=== PATIENT | male | born 1955 | race Caucasian/White ===

== ENCOUNTER → 2016-02-27 | Outpatient (CLI) | payer MEDICARE ==
--- NOTE | 2016-02-27 23:17 | MR ---
EXAMINATION TYPE: MR lumbar spine wo/w con DATE OF EXAM: 02/27/2016 10:04 PM COMPARISON: July 16, 2010 HISTORY: LBP, jose leg pain/weakness; hx back surgery x 2 for cyst removal TECHNIQUE: Multiplanar, multisequence images of the lumbar spine were acquired utilizing 20 mL intravenous Multi Alia gadolinium contrast. Diffusion weighted imaging was performed. Lumbar vertebra are fairly normal alignment. There is anterior wedging of L1 vertebral body with a sl ight thoracolumbar kyphotic curvature. The wedging is 20%. I see no bony spinal stenosis. There is de generative disc space narrowing throughout the lumbar spine and less severe at L2-3 and L5-S1. I see no bone edema to suggest an acute fracture. There is some metal artifact at the L5-S1 level on the le ft side consistent with previous surgery. There is left-sided laminectomy at L4. There is no paraspin al mass. There is hypertrophic facet arthropathy throughout the lumbar spine. There is bilateral mult ilevel neural foraminal narrowing due to the disc space narrowing and facet arthropathy. The contrast images show no pathologic enhancement. There are postsurgical changes and laminectomy de fect at T12-L1 level. There are small posterior disc bulges at L3-4 and L5-S1 without impingement on the spinal canal. IMPRESSION: Mild stable compression fracture of L1. Previous surgery in the lower lumbar spine and also at the th oracolumbar junction. No spinal stenosis. Multilevel mild neural foraminal impingement that is worse at L4-5 and L3-4 due to facet arthropathy and disc space narrowing. No acute bony abnormality seen.
== END | disposition home or self-care (01) ==
LOC: RADMRIMAIN 21:04
PROVIDERS: ATTEND Psychiatry & Neurology Neurology
DX: M48.56XA Collapsed vertebra, not elsewhere classified, lumbar region, initial encounter for fracture (principal); M48.06 Spinal stenosis, lumbar region; M46.86 Other specified inflammatory spondylopathies, lumbar region; Z98.890 Other specified postprocedural states
CPT/HCPCS: 72158; A9577

== ENCOUNTER → 2016-04-09 | Outpatient (CLI) | payer MEDICARE ==
[2016-04-09 18:02] LABS: Appearance,Urine Clear (Clear); Bilirubin,Urine Negative (Negative); Glucose,Urine (UA) Negative (Negative); Ketones,Urine Negative (Negative); Leukocyte Esterase,Urine Negative (Negative); Nitrite,Urine Negative (Negative); PH, Urine 5.5 (5.0-8.0); Protein,Urine Negative (Negative); Specific Gravity,Urine 1.016 (1.001-1.035); UA Billing (MACRO vs. MICRO) CHEM; Urobilinogen,Urine <2.0 mg/dL (<2.0)
== END | disposition home or self-care (01) ==
LOC: LABPAT 14:43
PROVIDERS: ATTEND Orthopaedic Surgery Sports Medicine
DX: Z01.812 Encounter for preprocedural laboratory examination (principal)
CPT/HCPCS: 81003; 85730; 87070

== ENCOUNTER → 2016-04-09 | Outpatient (CLI) | payer MEDICARE ==
[2016-04-09 12:48] LABS: Basophils # (A) 0.1 k/uL (0-0.2); Basophils % (A) 1 %; CH 31.3; CHCM 34.6; Eosinophils # (A) 0.1 k/uL (0-0.7); Eosinophils % (A) 2 %; HCT 47.3 % (39.0-53.0); HDW 3.02; HGB 15.6 gm/dL (13.0-17.5); Luc % (Auto) 2; Lymphocytes # (A) 1.8 k/uL (1.0-4.8); Lymphocytes % (A) 34 %; MCH 29.9 pg (25.0-35.0); MCHC 32.9 g/dL (31.0-37.0); MCV 90.7 fL (80.0-100.0); Mean Platelet Volume 7.3; Monocytes # (A) 0.4 k/uL (0-1.0); Monocytes % (A) 7 %; Neutrophils # (A) 2.9 k/uL (1.3-7.7); Neutrophils % (A) 54 %; RBC 5.21 m/uL (4.30-5.90); RDW 13.6 % (11.5-15.5); WBC 5.4 k/uL (3.8-10.6); WBC (Perox) 5.68
[2016-04-09 12:52] LABS: INR 1.1 (<1.1); Prothrombin Time 11.2 sec (9.0-12.0)
[2016-04-09 13:14] LABS: ALT 36 U/L (21-72); AST 27 U/L (17-59); Alkaline Phosphatase 69 U/L (38-126); Anion Gap 11 mmol/L; Blood Urea Nitrogen 17 mg/dL (9-20); Carbon Dioxide 24 mmol/L (22-30); Chloride 106 mmol/L (98-107); Cholesterol 155 mg/dL (<200); Glucose 80 mg/dL (74-99); HDL Cholesterol 51 mg/dL (40-60); Non-African American GFR(MDRD) >60 (>60 ml/min/1.73 sqM); Sodium 141 mmol/L (137-145); Total Protein 7.3 g/dL (6.3-8.2); Triglycerides 86 mg/dL (<150)
[2016-04-09 20:23] LABS: Hemoglobin A1C 4.7 % (4.2-6.1)
== END | disposition home or self-care (01) ==
LOC: LABWHC1 12:01
PROVIDERS: ATTEND Internal Medicine
DX: E78.5 Hyperlipidemia, unspecified (principal); I10 Essential (primary) hypertension
CPT/HCPCS: 36415; 80053; 80061; 81003; 83036; 84439; 84443; 85025; 85610; 85730; 87070; 99214

== ENCOUNTER 2016-04-22 10:46 | Inpatient (IN) | payer MEDICARE ==
[2016-04-16 08:27] VITALS: BMI 28.7
[~2016-04-22 10:46] MED LIST: ACETAMINOPHEN TAB 500 MG TAB PO ONE; DEXAMETHASONE SOD PHOSPHATE 10 MG/ML 1 ML VIAL IV ONE; LIDOCAINE 1% 20 ML VIAL (10MG/ML) FOR IV START INTRADERMA PRN; MELOXICAM 7.5 MG TAB PO ONE; MIDAZOLAM 2 MG/2 ML VIAL IV PRN; ONDANSETRON 4 MG/2 ML VIAL IVP ONE; Pre Op ABX Message 1 EACH MISC MISCELLANE ONE; ROPIVACAINE 246.25 MG, EPINEPHrine 0.5 MG, KETOROLAC 30 MG, cloNIDine HCL/PF 80 MCG, WA... MISCELLANE ONE; SCOPOLAMINE 1.5MG/72HR PATCH TRANSDERM ONE; TRANEXAMIC ACID 1,000 MG in SODIUM CHLORIDE 0.9% 100 ML IVPB ONE; ceFAZolin 2 GM in SODIUM CHLORIDE 0.9% 100 ML IVPB ONE
[2016-04-22] MEDS: LACTATED RINGERS 1,000 ML IV SCH ×3 (11:44→20:31)
[2016-04-22] MEDS ORDERED: LIDOCAINE 1% 20 ML VIAL (10MG/ML) FOR IV START INTRADERMA ONE (11:44)
[2016-04-22] MEDS ORDERED: MIDAZOLAM 2 MG/2 ML VIAL ONE (12:23)
[2016-04-22] MEDS ORDERED: fentaNYL (PF) 50 MCG/ML 2 ML AMP ONE (12:23)
[2016-04-22] MEDS ORDERED: PROPOFOL 10 MG/ML 20 ML VIAL IV ONE (12:23)
[2016-04-22] MEDS ORDERED: ROCURONIUM BROMIDE 10 MG/ML 10 ML VIAL IV ONE (12:23)
[2016-04-22] MEDS ORDERED: NEOSTIGMINE 1 MG/ML 10 ML VIAL ONE (12:23)
[2016-04-22] MEDS ORDERED: HYDROmorphone (PF) 1 MG/ML ONE (12:23)
[2016-04-22] MEDS ORDERED: SUCCINYLCHOLINE CHLORIDE 100 MG/5 ML SYR IV ONE (12:23)
[2016-04-22] MEDS ORDERED: GLYCOPYRROLATE 0.2 MG/ML 2 ML VIAL ONE (12:23)
[2016-04-22] MEDS ORDERED: TRANEXAMIC ACID 1,000 MG/10 ML VIAL ONE (12:23)
[2016-04-22] MEDS ORDERED: LIDOCAINE 1% INJ 10MG/ML (20 ML MDV) ONE (12:23)
[2016-04-22] MEDS ORDERED: SODIUM CHLORIDE 0.9% 100 ML BAG ONE (12:23)
[2016-04-22] MEDS ORDERED: ceFAZolin 3,000 MG in SODIUM CHLORIDE 0.9% IRRIGATIO 3,000 ML IRRIGATION ONE ×2 (13:03→14:35)
[2016-04-22] MEDS ORDERED: LACTATED RINGERS 1,000 ML IV ONE (14:00)
[2016-04-22] MEDS ORDERED: ONDANSETRON 4 MG/2 ML VIAL IVP PRN (15:17)
[2016-04-22] MEDS ORDERED: NA PHOS,M-B/NA PHOS,DI-BA 133 ML ENEMA RECTAL PRN (15:17)
[2016-04-22] MEDS ORDERED: MAGNESIUM HYDROXIDE 2,400 MG/10 ML CUP PO PRN (15:17)
[2016-04-22] MEDS ORDERED: traMADol 50 MG TAB PO PRN (15:17)
[2016-04-22] MEDS ORDERED: HYDROcodone/APAP 7.5-325MG 1 EACH TAB PO PRN (15:17)
[2016-04-22] MEDS ORDERED: BISACODYL 10 MG SUPP RECTAL PRN (15:17)
[2016-04-22] MEDS ORDERED: ACETAMINOPHEN TAB 325 MG TAB PO PRN (15:17)
[2016-04-22] MEDS ORDERED: HYDROmorphone 1 MG/ML 1 ML SYRINGE IVP PRN ×2 (15:17)
[2016-04-22] MEDS ORDERED: DIAZEPAM 5 MG TAB PO PRN (15:17)
[2016-04-22] MEDS ORDERED: hydrOXYzine PAMOATE 25 MG CAP PO PRN (15:17)
[2016-04-22] MEDS ORDERED: NALOXONE 0.4 MG/ML 1 ML VIAL IV PRN (15:17)
[2016-04-22] MEDS: HYDROmorphone 1 MG/ML 1 ML SYRINGE IVP PRN ×3 (15:37→17:30)
--- NOTE | 2016-04-22 15:41 | XR ---
EXAMINATION TYPE: XR knee limited RT DATE OF EXAM: 04/22/2016 3:36 PM CLINICAL HISTORY: Right knee pain and arthritis status post total knee replacement. TECHNIQUE: Portable AP and crosstable lateral views of the right knee are obtained immediately posto peratively. COMPARISON: None FINDINGS: Metallic hardware from total right knee arthroplasty is seen and appears satisfactory in a lignment and position. There is evidence of recent surgery with diffuse subcutaneous gas and soft ti ssue swelling noted. IMPRESSION: METALLIC HARDWARE FROM TOTAL RIGHT KNEE ARTHROPLASTY IS SATISFACTORY IN ALIGNMENT.
[2016-04-22] MEDS ORDERED: DICYCLOMINE 10 MG CAP PO PRN (19:07)
[2016-04-22] MEDS: ASPIRIN 325 MG TAB PO SCH (20:32)
[2016-04-22] MEDS: ceFAZolin 2 GM in SODIUM CHLORIDE 0.9% 100 ML IVPB SCH (20:32)
[2016-04-22] MEDS ORDERED: TEMAZEPAM 15 MG CAP PO PRN (21:00)
[2016-04-22] MEDS ORDERED: SENNOSIDES-DOCUSATE SODIUM 1 EACH TAB PO SCH (21:00)
[2016-04-22] MEDS ORDERED: BACLOFEN 10 MG TAB PO SCH (21:00)
[2016-04-22] MEDS ORDERED: ATORVASTATIN 10 MG TAB PO SCH (21:00)
[2016-04-23 02:59] VITALS: RESP 16
[2016-04-23] MEDS: ceFAZolin 2 GM in SODIUM CHLORIDE 0.9% 100 ML IVPB SCH (04:53)
[2016-04-23] MEDS: HYDROcodone/APAP 7.5-325MG 1 EACH TAB PO PRN ×2 (05:11→13:08)
[2016-04-23] MEDS: LACTATED RINGERS 1,000 ML IV SCH (05:59)
--- NOTE | 2016-04-23 07:06 | OP ---
DATE OF SERVICE: 04/22/2016 SURGEON: JANE ANDRADE MD VENDING MACHINE MECHANIC: Jaswant Sánchez PA-C. PREOPERATIVE DIAGNOSIS: Right knee osteoarthrosis. POSTOPERATIVE DIAGNOSIS: Right knee osteoarthrosis. OPERATION: Right total knee arthroplasty. ANESTHESIA: General endotracheal. ESTIMATED BLOOD LOSS: 200 mL. TOURNIQUET TIME: 91 minutes at 250 mmHg. SPECIMENS REMOVED: COMPLICATIONS: None apparent. DRAINS: None. DISPOSITION: Postanesthesia care unit. OPERATIVE FINDINGS: INDICATIONS: Jeremy is a 60-year-old male with long-standing history of right knee pain. History and physical examination are consistent with advanced right knee osteoarthrosis. He been through a very significant course of nonoperative management up to this point. Further treatment options were discussed and he has decided to go forward with a right total knee arthroplasty. The risks of the procedure were discussed with him in detail. These risks include, but are not limited to risk of infection, nerve damage, bleeding, pain, and a small risk of deep vein thrombosis, which could lead to fatal pulmonary embolism. There is also a risk of loosening of the implant, which could require revision operation. The patient understands these risks. All of his questions were answered to his satisfaction and appropriate informed consent was obtained. DESCRIPTION OF THE PROCEDURE: Patient was identified in the preoperative holding area. Surgical site was marked by both the patient and myself. He was given 2 grams of Ancef IV for prophylactic purposes. He was then transferred to the operative suite where he was placed supine on the operating room table. The patient then received general anesthesia per the anesthesia department without apparent complication. Examination under anesthesia was then performed. The patient was 5 degrees shy of full extension. He had 90 degrees of flexion, and the medial collateral ligament, lateral collateral ligament and posterior cruciate ligaments were stable. Tourniquet was then placed high on the right upper thigh, well padded in preparation for surgery. The patient's right lower extremity was then prepped and draped in the usual sterile fashion. Standard surgical pause was then undertaken to ensure that we were operating on the correct site and that appropriate preoperative antibiotics had been given. All staff in the room were in agreement and we proceeded. The outlines of the patella were then marked with a surgical pen. A planned 12 cm vertical incision centered over the patella was marked with a surgical pen. The leg was then exsanguinated with an Esmarch dressing. The knee was then flexed and the tourniquet was inflated to 250 mmHg. The total tourniquet time for the procedure was 91 minutes. Incision was then made with a 10 blade scalpel. Dissection was carried down sharply to the overlying fascia. Great care was taken to minimize the skin flaps. The knee was then exposed using a standard medial parapatellar approach. Small cuff of quadriceps tendon was left for suturing. He was in a bit of valgus preoperatively. A very minimal medial release was then made. Superficial medial collateral ligament was dissected off the bone around to the posterior aspect of the proximal tibia. The medial meniscus was then excised as well. The lateral meniscus was also released anteriorly. He had very osteophytes throughout the knee. These were extremely large osteophytes. He had an extremely large osteophyte on the superior pole of the patella as well as as soon as we made with arthrotomy a very large loose body was removed from the knee as well. This loose body was approximately 1-1/2 to 2 cm in diameter. After removing as much osteophyte as possible, the leg was then externally rotated. The patella was everted and the knee was flexed. Retractors were then placed to protect the collateral ligaments. I then proceeded to remove the infrapatellar fat pad. This was excised sharply tangentially with the fibers of the patellar tendon. I then proceeded to remove more peripheral osteophytes. This was done with a rongeur. I then proceeded with the distal femoral resection. He had about a 5-degree flexion contracture. I planned for an extra 2 mm resection, which was an 11 mm resection. The femoral canal was then entered in the midline of the femur approximately 10 mm anterior to the origin of the posterior cruciate ligament. The tierra was then advanced down the center of the femur and placed intramedullary. Based on preoperative radiographs, the angle between the anatomic and mechanical axis of the femur was approximately 4 to 5 degrees. The valgus angle of distal femoral cutting guide was then set at 4 degrees for the right knee. The distal femoral cutting guide was then advanced over the intramedullary tierra. This was seated firmly against the femur. I then, as mentioned, planned to take 11 mm off the distal femur. The cutting block was then secured onto the femur with pins. The jig was then removed and the distal femoral cut was made through the slot of the block. The pins were then removed and the distal femoral cutting block was removed. The accuracy of the distal femoral cuts was checked with 2 flat bars. I then proceeded with femoral sizing. The posterior referencing sizing guide was held firmly against the resected distal surface of the femur. The posterior condyles were resting on the posterior plane of the guide. The sizing stylus was then placed onto the anterior femur. The size was measured as a size 10. I then assessed for femoral rotation. The plan was for 3 degrees of external rotation. 3 degrees of external rotation was placed onto the jig. These holes were then marked. I then confirmed the rotation by 3 separate methods. This was done using epicondylar axis as well as Whitesides line and posterior referencing. It was then deemed that the external rotation was proper. I then went forward with placing the femoral cutting block. This was placed over the previously placed pinholes. The jarod wing was then placed onto the anterior slots to ensure that we would not notch the anterior femur with the anterior femoral cut. I then proceeded with the anterior femoral cut. This was flushed with the anterior cortex of the femur. The posterior cuts were then made followed by the anterior chamfer cut and then the posterior chamfer cut. The cutting block was then removed. Throughout the resection, the collateral ligaments were protected with retractors. I then placed a trial 10 femur. It fit very nice medial to lateral and fit flush with the distal end of the femur. The drill holes were then made. I then proceeded with the tibial cutter. I planned for cruciate-retaining knee. The guide was placed and set for varus valgus and for slope. The height was set for an approximately 2 mm resection from the lateral tibial plateau, which was the lower side. I was happy with the alignment and the amount of resection. The cutting block was then pinned to the proximal tibia. The alignment tierra was then removed and the proximal tibia was resected with reciprocating saw. Again this was done with retractors, protecting the collateral ligaments as well as posterior cruciate ligament. I then proceeded to evaluate the flexion and extension gaps. A 10 mm block was placed. The flexion and extension gaps were equal. I then proceeded with resection of the posterior osteophytes. He had extremely extensive posterior osteophytes. This was done using curved osteotome. This resected the posterior osteophytes and posterior capsule stripping was also done off the posterior aspect of the femur at this time. The osteophytes were removed. I then proceeded with resection of the patella. The thickness of the patella was measured using caliper. The thickness was 25 mm. The thickness of the anticipated patellar dome was taken into account. Resection was then performed and confirmed to be equal in 4 quadrants using a caliper. Approximately 14 mm of bone remained after the resection. A 35 x 9.0 mm standard patellar trial was then placed. The holes were then drilled and trial was then placed. I then proceeded with sizing the tibial plate. A size G tibial plate fit very nicely. I then placed a trial femur, the tibial tray and the patellar button. A 10 mm trial tibial insert was also placed. The components fit very nicely. He had full extension and flexion. The flexion-extension gaps were equal and stable both varus and valgus stress. The patella tracked appropriately. Tibial tray rotation was then marked with a Bovie. This was externally rotated properly. I then proceeded with tibial preparation. I first drilled the femoral holes and removed femoral component. The trial tray was then set for proper external rotation as well as mediolateral placement onto the tibia. It was then pinned into place. I then proceeded with punching the keel. I then decided to proceed with cementing of all of our components. The knee was thoroughly irrigated with sterile saline solution via pulse lavage. The lateral geniculate artery was identified and cauterized. All blood was removed from the bone of the tibia, femur and patella with pulse lavage. I then proceeded with cementing. Two packs of antibiotic bone cement were prepared on the back table by the neurosurgical physician assistant. I then proceeded with cementing of the tibia first. The cement was impacted in the keel as well as deeply seated into the bone. A second coat of cement was then placed. Tibia was then impacted into place. Excess cement was removed with Cushings and jokers. I then proceeded with cementing of the femoral component. The femoral component was also cemented using standard technique. Excess cement was removed. A 10 mm trial insert was then placed into the knee. It was brought into full extension with a constant axial load placed until the cement had hardened. The patellar component was then cemented. This was held firmly with a compressive device until the cement had dried. When the cement had dried, the knee was taken out of extension. All excess cement was removed from around the prosthesis. I then trialed the knee with a 10 mm insert. Flexion-extension gaps were appropriate. The knee was stable. It came into full extension. I decided to go forward with a 10 mm cross-linked cruciate-retaining tibial insert. Polyethylene was then placed onto the tibial tray and locked into place. The knee was then reduced. The knee was again further irrigated with sterile saline solution with antibiotic added. Tourniquet was then deflated. The total tourniquet time was 91 minutes at 250 mmHg. Final components were Jacquie Persona size 10 cruciate-retaining femoral component, a size G tibial tray, a 10 mm medial congruent cruciate retaining polyethylene insert and a 35 x 9 mm standard patella. I then proceeded with closure. Again, the knee was thoroughly irrigated. The quadriceps tendon and the medial retinaculum were reapproximated with #2 Ethibond suture. The extensor mechanism was then closed with running #2 Quill suture. Subcutaneous tissues were closed with 2-0 Vicryl interrupted suture. Skin was closed with a running 3-0 Quill suture. Dermabond was applied to the incision. Sterile compressive dressings were then applied. All sponge and needle counts were deemed correct prior to closure. The patient tolerated the procedure without apparent complication. He was transferred to recovery room in stable condition.
[2016-04-23 07:41] VITALS: BP 109/54; PULSE 72; TEMP 98.4
[2016-04-23 07:58] LABS: Basophils % (A) 0 %; CH 31.2; CHCM 34.6; Eosinophils % (A) 0 %; HDW 2.99; Luc # (Auto) 0.13; Luc % (Auto) 1; Lymphocytes # (A) 1.4 k/uL (1.0-4.8); Lymphocytes % (A) 14 %; MCH 30.6 pg (25.0-35.0); MCHC 33.8 g/dL (31.0-37.0); MCV 90.7 fL (80.0-100.0); Mean Platelet Volume 8.2; Monocytes # (A) 0.8 k/uL (0-1.0); Monocytes % (A) 8 %; Neutrophils # (A) 7.8 k/uL (1.3-7.7); Neutrophils % (A) 77 %; RBC 3.97 m/uL (4.30-5.90); RDW 13.9 % (11.5-15.5); WBC 10.2 k/uL (3.8-10.6); WBC (Perox) 11.14
[2016-04-23 08:09] LABS: HGB 12.1 gm/dL (13.0-17.5)
[2016-04-23] MEDS: ASPIRIN 325 MG TAB PO SCH (08:10)
[2016-04-23] MEDS: HYDROmorphone 1 MG/ML 1 ML SYRINGE IVP PRN (08:16)
[2016-04-23] MEDS ORDERED: CRANBERRY PO SCH (09:00)
[2016-04-23] MEDS ORDERED: VITAMIN C PO SCH (09:00)
[2016-04-23] MEDS ORDERED: NON-FORMULARY DRUG (Omega-3/Dha/Epa/Fish Oil [Fish Oil Ec 1,200 Mg Softgel] 1 CAP) PO SCH (09:00)
[2016-04-23] MEDS ORDERED: LOSARTAN 25 MG TAB PO SCH (09:00)
[2016-04-23] MEDS ORDERED: ASCORBIC ACID 500 MG TAB PO SCH (09:00)
[2016-04-23] MEDS ORDERED: ZINC SULFATE 220 MG CAP PO SCH (09:00)
[2016-04-23] MEDS ORDERED: VIT A,C & E-LUTEIN-MINERALS 1 EACH TAB PO SCH (09:00)
--- NOTE | 2016-04-23 10:38 | P.CNPUL ---
History of Present Illness Consult date: 04/23/16 Reason for consult: other Chief complaint: Status post right total knee arthroplasty History of present illness: 60-year-old white male with a right total knee arthroplasty done by Dr. Sam. Today's postop day #1. The nurse call me yesterday. We ordered his home medications. Most of them are supplemental vitamins. He is doing well. No major complaints. He has no major ALLERGIES. He sees Dr. Jiang as his primary. His home medications include tramadol zinc vitamin A simvastatin omega-3 his losartan ibuprofen dicyclomine her Bentyl cranberry with vitamin C baclofen aspirin ascorbic acid. His medical problem list includes primarily hypertension hyperlipidemia and chronic pain syndrome with arthritis. Review of Systems A 12 point review of system is positive only for pain in the right knee area. Otherwise review of system is unremarkable. 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 has beginnings of cataracts and glaucoma History of Any Multi-Drug Resistant Organisms: None Reported Past Surgical History: Back Surgery, Hernia Repair, Joint Replacement, Orthopedic Surgery Additional Past Surgical History / Comment(s): colonoscopy, rt rotator cuff repair, orif lt wrist, Lt TKA, rt knee scope, multiple back surgeries Past Anesthesia/Blood Transfusion Reactions: No Reported Reaction Past Psychological History: No Psychological Hx Reported Smoking Status: Never smoker Past Alcohol Use History: None Reported Past Drug Use History: None Reported - Past Family History Father Additional Family Medical History / Comment(s): black lung disease Mother Family Medical History: Pneumonia Medications and Allergies Home Medications Medication Instructions Recorded Confirmed Type Ascorbic Acid [Vitamin C] 1,000 mg PO DAILY 04/16/16 04/22/16 History Aspirin [Adult Low Dose Aspirin EC] 81 mg PO DAILY 04/16/16 04/22/16 History Baclofen [Lioresal] 20 mg PO HS 04/16/16 04/22/16 History Cranberry + Vitamin C 1 each PO DAILY 04/16/16 04/22/16 History Dicyclomine [Bentyl] 10 mg PO BID PRN 04/16/16 04/22/16 History Ibuprofen [Motrin] 800 mg PO Q8HR PRN 04/16/16 04/22/16 History Losartan [Cozaar] 25 mg PO DAILY 04/16/16 04/22/16 History [place]-3/Dha/Epa/Fish Oil [Fish Oil 1 cap PO DAILY 04/16/16 04/22/16 History EC 1,200 mg Softgel] Simvastatin [Simvastatin] 20 mg PO HS 04/16/16 04/22/16 History Vit A/Vit C/Vit E/Zinc/Copper 1 cap PO DAILY 04/16/16 04/22/16 History [ICAPS SOFTGEL] Zinc Gluconate [Zinc] 100 mg PO DAILY 04/16/16 04/22/16 History traMADol HCL [Ultram] 50 mg PO Q6HR PRN 04/16/16 04/22/16 History Allergies Allergy/AdvReac Type Severity Reaction Status Date / Time No Known Allergies Allergy Verified 04/22/16 15:48 Physical Exam Osteopathic Statement: *. No significant issues noted on an osteopathic structural exam other than those noted in the History and Physical/Consult. Vitals: Vital Signs Temp Pulse Pulse Pulse Resp BP BP 04/23/16 07:30 98.4 F 72 16 109/54 04/23/16 01:40 97.9 F 74 16 82/42 04/22/16 20:00 97.9 F 92 18 117/70 04/22/16 18:15 93 117/67 04/22/16 18:00 63 117/64 04/22/16 17:45 74 127/69 04/22/16 17:30 92 129/78 04/22/16 17:15 97 110/75 04/22/16 17:00 94 129/76 04/22/16 16:45 114 H 140/88 04/22/16 16:30 91 125/74 04/22/16 16:15 97.8 F 93 16 135/74 04/22/16 16:01 83 16 135/66 04/22/16 16:00 83 16 04/22/16 15:46 67 16 131/68 04/22/16 15:30 76 16 133/70 04/22/16 15:16 98.1 F 87 16 135/68 04/22/16 11:32 97.9 F 60 18 179/97 Pulse Ox 04/23/16 07:30 98 04/23/16 01:40 95 04/22/16 20:00 94 L 04/22/16 18:15 04/22/16 18:00 04/22/16 17:45 04/22/16 17:30 04/22/16 17:15 04/22/16 17:00 04/22/16 16:45 04/22/16 16:30 04/22/16 16:15 98 04/22/16 16:01 97 04/22/16 16:00 04/22/16 15:46 94 L 04/22/16 15:30 98 04/22/16 15:16 98 04/22/16 11:32 98 Intake and Output 04/22/16 04/23/16 04/23/16 22:59 06:59 14:59 Intake Total 875 240 Output Total 1000 750 Balance -1000 125 240 Intake: IV 875 Lactated Ringers 1,000 ml 675 @ 75 mls/hr IV .[id number] MANUEL Rx#:[id number] ceFAZolin 2 gm In Sodium 200 Chloride 0.9% 100 ml @ 100 mls/hr IVPB ONCE ONE Rx#:[id number] Oral 240 Output: Urine 1000 750 Other: Voiding Method Self-Catheterization Weight 90.718 kg No acute distress, oriented 3. HEENT examination is grossly unremarkable. Supple. Full range of motion. Cardiovascular examination reveals regular rhythm rate. S1-S2 normal. Lungs reveal clear breath sounds. Breath sounds are equal. No adventitious lung sounds. Abdomen soft bowel sounds are heard. Next Extremities are intact. Results - Laboratory Findings CBC and BMP: 04/23/16 07:07 Abnormal lab findings: Abnormal Labs 04/23/16 07:07 RBC 3.97 L Hgb 12.1 L D Hct 36.0 L Neutrophils # 7.8 H Assessment and Plan (1) Osteoarthritis of right knee Status: Acute Plan: Plan Home medications were reordered. The patient is doing well. Not sure if she' ll be discharged to one or [address] Sam we'll make that decision. Additional recommendations suggestions forthcoming. Prognosis is generally good. Time with Patient: Greater than 30
--- NOTE | 2016-04-23 11:55 | P.DS ---
Providers Date of admission: 04/22/16 10:46 Expected date of discharge: 04/23/16 Attending physician: Mathieu Sam Consults: 04/22/16 15:17 Consult Physician Routine Consulting Provider: Ora Jiang Reason/Comments: post op medical management Do you want consulting provider notified?: Yes Primary care physician: Ora Deidre [facility] Course: Patient was admitted to the OR on 05/02/2016 TO undergo right total knee arthroplasty per Dr. Sam. He had failed conservative measures as an outpatient and elected to proceed with surgery after given informed consent. He underwent the above procedure which he tolerated well without complication. On day of discharge he desires discharge to home. 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 Review of systems is negative for calf pain, acute numbness or tingling, fever, chills, chest pain, shortness of breath, nausea, vomiting, dizziness, headaches, rashes, bleeding, slurred speech or other. Procedures: Right total knee arthroplasty Patient Condition at Discharge: Good Plan - Discharge Summary New Discharge Prescriptions: Aspirin 325 mg PO BID #60 tab Docusate [Colace] 100 mg PO BID #60 capsule HYDROcodone/APAP 7.5-325MG [Brandon 7.5-325] 1 - 2 each PO Q6HR PRN #90 tab PRN Reason: Pain Discharge Medication List Ascorbic Acid [Vitamin C] 1,000 mg PO DAILY 04/16/16 [History] Aspirin [Adult Low Dose Aspirin EC] 81 mg PO DAILY 04/16/16 [History] Baclofen [Lioresal] 20 mg PO HS 04/16/16 [History] Cranberry + Vitamin C 1 each PO DAILY 04/16/16 [History] Dicyclomine [Bentyl] 10 mg PO BID PRN 04/16/16 [History] Ibuprofen [Motrin] 800 mg PO Q8HR PRN 04/16/16 [History] Losartan [Cozaar] 25 mg PO DAILY 04/16/16 [History] [place]-3/Dha/Epa/Fish Oil [Fish Oil EC 1,200 mg Softgel] 1 cap PO DAILY 04/16/16 [History] Simvastatin [Simvastatin] 20 mg PO HS 04/16/16 [History] Vit A/Vit C/Vit E/Zinc/Copper [ICAPS SOFTGEL] 1 cap PO DAILY 04/16/16 [History] Zinc Gluconate [Zinc] 100 mg PO DAILY 04/16/16 [History] traMADol HCL [Ultram] 50 mg PO Q6HR PRN 04/16/16 [History] Aspirin 325 mg PO BID #60 tab 04/23/16 [Rx] Docusate [Colace] 100 mg PO BID #60 capsule 04/23/16 [Rx] HYDROcodone/APAP 7.5-325MG [[place] 7.5-325] 1 - 2 each PO Q6HR PRN #90 tab [Rx] Follow up Appointment(s)/Referral(s): [facility] Nurse, [NON-STAFF] - 1 Week Mathieu Sam MD [STAFF PHYSICIAN] - 10 Days Activity/Diet/Wound Care/Special Instructions: keep Wound clean and dry Take meds as directed Follow-up with Dr. Sam in office, [phone] Weight-bear as tolerated Discharge Disposition: HOME WITH HOME HEALTH SERVICES
[2016-04-23] MEDS ORDERED: MULTIVITAMINS, THERA 1 EACH TAB PO SCH (12:00)
== END 2016-04-23 14:35 | disposition home health service (06) | DRG 470 ==
LOC: 2ORMAIN 10:46 → 3SUR 15:34
PROVIDERS: ADMIT Orthopaedic Surgery Sports Medicine; ATTEND Orthopaedic Surgery Sports Medicine
PROC: 0SRC0J9 Replacement of Right Knee Joint with Synthetic Substitute, Cemented, Open Approach (ICD-10-PCS; principal; 2016-04-22 12:30)
DX: M17.11 Unilateral primary osteoarthritis, right knee (principal); I10 Essential (primary) hypertension; E78.5 Hyperlipidemia, unspecified; G89.4 Chronic pain syndrome; H40.9 Unspecified glaucoma; M21.371 Foot drop, right foot; H26.9 Unspecified cataract; H91.90 Unspecified hearing loss, unspecified ear; Z79.82 Long term (current) use of aspirin; Z79.899 Other long term (current) drug therapy; Z96.652 Presence of left artificial knee joint
CPT/HCPCS: 85025; 88300

== ENCOUNTER 2017-05-31 07:24 | Inpatient (IN) | payer MEDICARE ==
[2017-05-23 12:26] VITALS: BMI 28.7
[~2017-05-31 07:24] MED LIST changes: +HYDROmorphone 0.5 MG/0.5 ML SYRINGE IVP PRN; -Pre Op ABX Message 1 EACH MISC MISCELLANE ONE; -TRANEXAMIC ACID 1,000 MG in SODIUM CHLORIDE 0.9% 100 ML IVPB ONE; +TRANEXAMIC ACID 1,000 MG in SODIUM CHLORIDE 0.9% 50 ML IVPB ONE; -ceFAZolin 2 GM in SODIUM CHLORIDE 0.9% 100 ML IVPB ONE; +ceFAZolin IN SWFI 2 GM/20 ML SYRINGE IVP ONE; +fentaNYL (PF) 50 MCG/ML 2 ML AMP IV PRN
[2017-05-31] MEDS ORDERED: LIDOCAINE 1% 20 ML VIAL (10MG/ML) FOR IV START INTRADERMA ONE (08:13)
[2017-05-31] MEDS: LACTATED RINGERS 1,000 ML IV SCH ×2 (08:13→21:28)
[2017-05-31] MEDS ORDERED: MIDAZOLAM 2 MG/2 ML VIAL ONE (08:45)
[2017-05-31] MEDS ORDERED: MIDAZOLAM 2 MG/2 ML VIAL IV ONE (08:45)
[2017-05-31] MEDS ORDERED: HYDROcodone/APAP 5-325MG 1 EACH TAB PO PRN (08:47)
[2017-05-31] MEDS ORDERED: NALOXONE 0.4 MG/ML 1 ML VIAL IV PRN (08:47)
[2017-05-31] MEDS ORDERED: hydrOXYzine PAMOATE 25 MG CAP PO PRN (08:47)
[2017-05-31] MEDS ORDERED: MAGNESIUM HYDROXIDE 2,400 MG/10 ML CUP PO PRN (08:47)
[2017-05-31] MEDS ORDERED: MORPHINE SULFATE 4MG/4ML SYRG IVP PRN ×4 (08:47→10:05)
[2017-05-31] MEDS ORDERED: DIAZEPAM 5 MG TAB PO PRN ×2 (08:47)
[2017-05-31] MEDS ORDERED: ONDANSETRON 4 MG/2 ML VIAL IVP PRN (08:47)
[2017-05-31] MEDS ORDERED: LIDOCAINE 1% INJ 10MG/ML (20 ML MDV) ONE (09:19)
[2017-05-31] MEDS ORDERED: ceFAZolin 3,000 MG in SODIUM CHLORIDE 0.9% IRRIGATIO 3,000 ML IRRIGATION ONE (09:19)
[2017-05-31] MEDS ORDERED: VECURONIUM 10 MG VIAL IV ONE (09:19)
[2017-05-31] MEDS ORDERED: SUCCINYLCHOLINE CHLORIDE 100 MG/5 ML SYR IV ONE (09:19)
[2017-05-31] MEDS ORDERED: PROPOFOL 10 MG/ML 20 ML VIAL IV ONE (09:19)
[2017-05-31] MEDS ORDERED: SODIUM CHLORIDE 0.9% 100 ML BAG ONE (09:19)
[2017-05-31] MEDS ORDERED: GLYCOPYRROLATE 0.2 MG/ML 2 ML VIAL ONE (09:19)
[2017-05-31] MEDS ORDERED: NEOSTIGMINE 1 MG/ML 10 ML VIAL ONE (09:19)
[2017-05-31] MEDS ORDERED: fentaNYL (PF) 50 MCG/ML 2 ML AMP ONE (09:19)
[2017-05-31] MEDS ORDERED: TRANEXAMIC ACID 1,000 MG/10 ML VIAL ONE (09:19)
[2017-05-31] MEDS ORDERED: LACTATED RINGERS 1,000 ML IV ONE (10:14)
--- NOTE | 2017-05-31 10:38 | P.OP ---
Date of Procedure: 05/31/17 Preoperative Diagnosis: Severe osteoarthritis left hip Postoperative Diagnosis: Severe osteoarthritis left hip Procedure(s) Performed: Left total hip arthroplasty with a direct anterior approach Implants: Olivas and nephew Polarstem size 4 standard Olivas & Nephew R3, 3 hole acetabular shell, 54 mm Olivas & Nephew reflection 6.5 mm cancellus screw, 20 mm 2 Olivas [employer] Nephew R3, XLPE 20 acetabular liner Olivas & Nephew Oxinium femoral head 36 m, +8 All components were press-fit. The articulation is Oxinium on polyethylene. Anesthesia: GETA Surgeon: Clovis Horner Wet Pour Mixer #1: Colette Jones Estimated Blood Loss (ml): 700 (279 mL returned with Cell Saver) Pathology: other (Femoral head) Condition: stable Disposition: PACU Indications for Procedure: After failure of conservative treatment we discussed the surgical and nonsurgical treatment options at length. Patient wishes to proceed with a total hip arthroplasty with a direct anterior approach. Complications specific to this procedure were discussed at length, including but not limited to infection, leg length discrepancy, dislocation, and nerve injury. Patient is aware of all these complications and informed consent was obtained Operative Findings: The operative findings are consistent with severe osteoarthritis of the left hip Description of Procedure: Patient was seen and evaluated in the preoperative area, consent was reviewed, and the surgical site was marked with a skin marker. Patient was then brought to the operating room and given prophylactic antibiotics intravenously. 1 g of Tranexamic acid was also given. A general anesthetic was administered by the anesthesia department. The patient was then placed on the Napoleon table with the bony prominences well-padded. The hip area was then prepped and draped in usual sterile fashion. A universal timeout was then performed, which confirmed the patient's name, surgical site, ALLERGIES, and procedure being performed. Next the incision site was located at 1 cm distal and 1 cm lateral to the anterior superior iliac spine. The skin and subcutaneous tissues were sharply incised. Incision was carefully dissected down to the fascia overlying the tensor fascia daniel muscle. This fascia was then incised in line with the incision. Next, using blunt finger dissection, the tensor fascia daniel muscle was dissected off its investing fascia. The muscle was then carefully retracted laterally with a cobra retractor over the lateral neck of the femur. Next, the circumflex vessels were identified and cauterized using the AquaMantis device. The anterior hip capsule was then exposed. The capsule was then opened and an inverted T fashion. Cobra retractors were then placed intracapsularly. The proximal femur was then visualized. The femoral neck was then osteotomized appropriate level above the lesser trochanter. Small amount of traction was placed with the Napoleon table. A small wedge of bone was then removed from the remaining femoral head. Next, using a corkscrew femoral head was easily removed from the acetabulum. On gross visual inspection, the femoral head had complete loss of articular cartilage in multiple periarticular osteophytes. Attention was then turned to the acetabulum. the acetabulum was exposed and any remaining labrum was excised. Sequential reaming of the acetabulum was performed using fluoroscopic guidance. When the appropriate size was reached, a trial was then placed. The position and fit of the trial was checked with fluoroscopy. The trial was then removed. Then, using fluoroscopic guidance, the final implant was impacted at 20 of anteversion and 40 of abduction, and fully seated in the acetabulum. 2 screws were then placed in the acetabulum. Again fluoroscopy was used to check position of the screws. Next, the liner was then impacted, with a 20 elevated liner located in the anterior superior quadrant. Component locking was confirmed. Attention was then directed to the femur. With the aid of the Napoleon table, the femur was externally rotated to approximately 130, extended, and abducted under the opposite leg. A side hook was then placed under the proximal femur, and the side hook elevator was used to elevate the proximal femur. Retractors were then placed. A capsular release was performed, as well as a release of the conjoined tendon, which afforded excellent visualization of the proximal femur. Next, a box osteotome was used to lateralize the proximal femur. A precision filer hand was then used to locate the femoral canal. Sequential broaching was then performed with appropriate size which afforded excellent fixation in the proximal femur. A trial was then placed with appropriate head and neck, and the hip was gently reduced with the aid of the Napoleon table. Fluoroscopy was then used to check position of the components, as well as to ensure equal leg lengths. The hip was then gently dislocated and the trials were then removed. Final implants were then impacted and the hip was again reduced. Final fluoroscopic x-rays confirmed that the components were in anatomic position, as well as equal leg lengths. The hip was also taken through range of motion, and found to be stable. The hip was then copiously irrigated with antibiotic solution with pulsatile lavage. The hip was then irrigated with Irrisept solution. The soft tissues were then injected with a ropivacaine solution, which consisted of 246.25 mg of ropivacaine, 0.5 mg of epinephrine, 30 mg of Toradol, 80 g of clonidine, and 48.45 mL of sterile water, for a total of 100 mL of fluid injected. A second dose of 1 g of Tranexamic acid was also given. the fascia was then closed with 2-0 strata fix suture. The subcutaneous tissue was closed with 3-0 Vicryl. The subcuticular tissue was closed with 3-0 strata fix suture. The skin was then closed with Dermabond glue and a sterile silver dressing. The patient was then transferred to the recovery room in stable condition. The logistics assistant KELIN Allison was required due to the complexity of surgery, and the need for skilled certified surgical assistant for positioning, draping, exposure, retraction, and closure of the wound.
--- NOTE | 2017-05-31 10:55 | FL ---
EXAMINATION TYPE: FL guidance operating room, XR Hip Limited LT DATE OF EXAM: 05/31/2017 CLINICAL HISTORY: Left hip replacement surgery. TECHNIQUE: Fluoroscopy. Intraoperative limited views left hip. COMPARISON: None. FINDINGS: Fluoroscopic guidance was provided during left hip replacement procedure performed by Dr. Horner. A total of 41 seconds of fluoroscopic time was utilized during the procedure and 2 spot in traoperative images are acquired. Intraoperative images acquired show metallic hardware from left hip surgery well seated in single fro ntal projection. IMPRESSION: As Above.
--- NOTE | 2017-05-31 11:24 | XR ---
EXAMINATION TYPE: XR Hip Limited LT DATE OF EXAM: 05/31/2017 CLINICAL HISTORY: Left hip pain and osteoarthritis status post surgical replacement. TECHNIQUE: Single AP portable view of left hip is obtained immediately postoperatively. COMPARISON: None. FINDINGS: Metallic hardware from total left hip arthroplasty is seen and appears satisfactory in alig nment and position. There is evidence of recent surgery with subcutaneous gas noted laterally at sub trochanteric level. IMPRESSION: Metallic hardware from left hip arthroplasty is satisfactory in position.
[2017-05-31] MEDS: MORPHINE SULFATE 4MG/4ML SYRG IVP ONE ×2 (11:27→11:42)
[2017-05-31 11:29] VITALS: RESP 16
[2017-05-31] MEDS: ASPIRIN 325 MG TAB PO SCH ×2 (13:08→21:20)
[2017-05-31] MEDS: SODIUM CHLORIDE 0.9% 1,000 ML IV SCH (13:08)
[2017-05-31] MEDS ORDERED: SODIUM CHLORIDE 0.9% 250 ML IV ONE (14:57)
[2017-05-31 15:57] LABS: Basophils % (A) 0 %; Eosinophils # (A) 0.1 k/uL (0-0.7); Eosinophils % (A) 0 %; HCT 37.2 % (39.0-53.0); HGB 12.3 gm/dL (13.0-17.5); Lymphocytes # (A) 0.6 k/uL (1.0-4.8); Lymphocytes % (A) 4 %; MCH 29.3 pg (25.0-35.0); MCHC 33.1 g/dL (31.0-37.0); MCV 88.5 fL (80.0-100.0); Mean Platelet Volume 8.1; Monocytes # (A) 0.5 k/uL (0-1.0); Monocytes % (A) 4 %; Neutrophils # (A) 13.1 k/uL (1.3-7.7); Neutrophils % (A) 92 %; Platelet Count 202 k/uL (150-450); RDW 13.9 % (11.5-15.5); WBC 14.3 k/uL (3.8-10.6)
[2017-05-31] MEDS: ceFAZolin IN SWFI 2 GM/20 ML SYRINGE IVP SCH (16:06)
[2017-05-31 16:14] LABS: Creatine Kinase 313 U/L (55-170)
[2017-05-31 16:26] LABS: Troponin I <0.012 ng/mL (0.000-0.034)
[2017-05-31 16:30] LABS: Creatine Kinase MB 3.4 ng/mL (0.0-2.4)
--- NOTE | 2017-05-31 19:01 | P.CNPUL ---
History of Present Illness Consult date: 05/31/17 Requesting physician: Clovis Horner Reason for consult: other Chief complaint: Hypotension, medical management History of present illness: Mr. Riggs is a 62-year-old white male patient Follows with Dr. Jiang for primary care services, presented on 05/31/2017 elective left total hip arthroplasty with a direct anterior approach for diagnosis of severe osteoarthritis of the left hip. Has a past medical history of CVA, hypertension , hyperlipidemia, osteoarthritis, cataracts, glaucoma. He tolerated the procedure very well, and returned to the recovery room in stable condition. He was then transferred to inpatient room, her consulted for medical management. At around 1530 this afternoon patient started experiencing hypotension, with systolic blood pressure in the 60s limited of mercury. Nursing staff place the patient in Trendelenburg position, and patient was given 1 L of IV bolus of 0.9 normal saline. Stat hemoglobin was checked, and was at 12.3, and the preop hemoglobin was 14.4. EBL was estimated to be around 700. Patient responded to IV fluid resuscitation, and his blood pressure recovered with the most recent blood pressure at 107/57. Patient is non-tachycardic, sinus mechanism. Stat EKG was obtained for patient complaining of vague chest discomfort in the midsternal area, with no radiation. EKG showed nonspecific Q-wave in the inferior leads, stat troponin was negative 1, CK-MB and total creatinine kinase were elevated at 3.4, and 313 respectively. Could be related to muscle injury related to surgery. Patient denied any dyspnea, is complaining of some tingling sensation in bilateral hands which subsided as the blood blood pressure recovered, as stated felt a little dizzy During the episode of hypotension which is currently resolved. Currently IV fluids are infusing at the rate of 65 ML per hour. Patient is reducing urine. Cardiology was consulted. During my evaluation patient is awake, alert, initially seen in the Trendelenburg position, the blood pressure recovered head of the bed was elevated. Lung sounds are clear to auscultation, he is on room air, not requiring any supplemental oxygen. Patient is afebrile, denies any fever or chills. Left hip surgical incision is covered with a postsurgical dressing, there is some swelling at the incision site, good pedal pulses noted bilaterally , no tenderness noted bilaterally. Review of Systems All systems: negative Constitutional: Denies chills, Denies fever Eyes: denies blurred vision, denies pain Ears, nose, mouth and throat: Denies headache, Denies sore throat Cardiovascular: Denies chest pain, Denies shortness of breath Respiratory: Denies cough Gastrointestinal: Denies abdominal pain, Denies diarrhea, Denies nausea, Denies vomiting Musculoskeletal: Reports arm numbness/tingling, Denies myalgias Musculoskeletal: left: hip swelling (Left hip surgical incision covered with a surgical dressing, swelling and tenderness in the surrounding area) Integumentary: Denies pruritus, Denies rash Neurological: Denies numbness, Denies weakness Psychiatric: Denies anxiety, Denies depression Endocrine: Denies fatigue, Denies weight change 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 has beginnings of cataracts and glaucoma, bulging cervical disc History of Any Multi-Drug Resistant Organisms: None Reported Past Surgical History: Back Surgery, Hernia Repair, Joint Replacement, Orthopedic Surgery Additional Past Surgical History / Comment(s): colonoscopy, rt rotator cuff repair, orif lt wrist, both knees replaced, rt knee scope, multiple back surgeries, pain injections, ant tlh 05/31/17 Past Anesthesia/Blood Transfusion Reactions: No Reported Reaction Past Psychological History: No Psychological Hx Reported Smoking Status: Never smoker Past Alcohol Use History: None Reported Past Drug Use History: None Reported - Past Family History Father Additional Family Medical History / Comment(s): black lung disease Mother Family Medical History: Pneumonia Medications and Allergies Home Medications Medication Instructions Recorded Confirmed Type Ascorbic Acid [Vitamin C] 1,000 mg PO DAILY 04/16/16 05/31/17 History Aspirin [Adult Low Dose Aspirin EC] 81 mg PO DAILY 04/16/16 05/31/17 History Baclofen [Lioresal] 20 mg PO HS PRN 04/16/16 05/31/17 History Cranberry + Vitamin C 1 cap PO DAILY 04/16/16 05/31/17 History Dicyclomine [Bentyl] 10 mg PO BID PRN 04/16/16 05/31/17 History Ibuprofen [Motrin] 800 mg PO Q8HR PRN 04/16/16 05/31/17 History Losartan [Cozaar] 25 mg PO DAILY 04/16/16 05/31/17 History Simvastatin [Simvastatin] 20 mg PO HS 04/16/16 05/31/17 History Vit A/Vit C/Vit E/Zinc/Copper 1 cap PO DAILY 04/16/16 05/31/17 History [ICAPS SOFTGEL] Zinc Gluconate [Zinc] 100 mg PO DAILY 04/16/16 05/31/17 History traMADol HCL [Ultram] 50 mg PO Q6HR PRN 04/16/16 05/31/17 History Biotin 5 mg PO DAILY 05/23/17 05/31/17 History Gabapentin [Neurontin] 300 mg PO TID 05/27/17 05/31/17 History Allergies Allergy/AdvReac Type Severity Reaction Status Date / Time No Known Allergies Allergy Verified 05/31/17 13:17 Physical Exam Vitals: Vital Signs Temp Pulse Pulse Resp BP BP Pulse Ox 05/31/17 12:00 68 16 127/74 100 05/31/17 11:45 62 16 130/77 100 05/31/17 11:30 53 L 16 131/73 100 05/31/17 11:15 53 L 16 128/71 97 05/31/17 11:02 97.6 F 62 12 146/81 96 05/31/17 07:43 98.1 F 54 L 16 165/84 95 Intake and Output 05/31/17 05/31/17 05/31/17 06:59 14:59 22:59 Intake Total 1741 Output Total 1440 Balance 301 Intake: IV 1501 Oral 240 Output: Urine 740 Straight 500 Estimated Blood Loss 700 Other: Voiding Method Self-Catheterization Self-Catheterization Weight 90.718 kg - Constitutional General appearance: average body habitus, no acute distress - EENT Eyes: EOMI, normal appearance ENT: NA/AT, normal oropharynx Ears: bilateral: normal - Neck Neck: no lymphadenopathy, normal ROM Carotids: bilateral: upstroke normal Thyroid: bilateral: normal size - Respiratory Respiratory: bilateral: CTA - Cardiovascular Rhythm: regular Heart sounds: normal: S1, S2 ankle Peripheral Edema: absent: None foot Peripheral Edema: absent: None leg Peripheral Edema: absent: None - Gastrointestinal General gastrointestinal: no organomegaly, soft, no tenderness - Neurologic Neurologic: CNII-XII intact - Musculoskeletal Musculoskeletal: gait normal - Psychiatric Psychiatric: A&O x's 3, appropriate affect, intact judgment & insight Results - Laboratory Findings CBC and BMP: 05/31/17 15:21 Abnormal lab findings: Abnormal Labs 05/31/17 15:21 WBC 14.3 H RBC 4.20 L Hgb 12.3 L Hct 37.2 L Neutrophils # 13.1 H Lymphocytes # 0.6 L - Diagnostic Findings Additional studies: Twelve-lead EKG was reviewed, left hip x-ray report was reviewed Assessment and Plan Plan: Assessment: #1. Hypotension, related to hypovolemia, patient responded IV fluid resuscitation 11 L of 0.9 normal saline bolus. #2. Blood loss anemia, as an expected postsurgical outcome, status post left hip arthroplasty, Intra-Op EBL was estimated to be at 700 ML. Postoperative hemoglobin was 12.3 #3. Positive CK-MB and creatinine kinase, EKG was negative for any acute ischemic changes, is probably related to acute muscle injury related to surgery. We'll follow up with follow-up troponins, cardiology was consulted #4. Bilateral hand paresthesias, and lightheadedness related to hypotension, resolved #5. Previous history of CVA #6. Hypertension #7. Severe osteoarthritis of the left hip, status post left total hip arthroplasty with a direct anterior approach, postop day 0 #8. Hyperlipidemia #9. History of cataracts #10. Straight of multiple orthopedic surgeries including multiple back surgeries, right rotator cuff repair, left wrist ORIF Plan: Patient was given 1 L of IV post 0.9 normal saline, with good response. We'll recheck hemoglobin at 2200 tonight. He is non-tachycardic, symptoms of bilateral hand her seizures and lightheadedness has resolved as a blood pressure improved. He is voiding. Will obtain serial cardiac enzymes and troponins, cardiology was consulted. EKG was reviewed, no acute ST, T-wave abnormalities were noted, there was a Q wave noted in the inferior leads. Currently patient denies any chest pain, or dyspnea. Continue to monitor, placed on the telemetry monitoring. I performed a history & physical examination of the patient and discussed their management with my nurse practitioner, Megan Chau. I reviewed the nurse practitioner's note and agree with the documented findings and plan of care. Lung sounds are clear. The findings and the impression was discussed with the patient. I attest to the documentation by the nurse practitioner. Time with Patient: Greater than 30
[2017-05-31] MEDS ORDERED: SENNOSIDES-DOCUSATE SODIUM 1 EACH TAB PO SCH (21:00)
[2017-05-31 22:49] LABS: Creatine Kinase 598 U/L (55-170)
[2017-05-31 23:03] LABS: Troponin I <0.012 ng/mL (0.000-0.034)
[2017-06-01] MEDS ORDERED: HYDROcodone/APAP 5-325MG 1 EACH TAB ONE (00:45)
[2017-06-01 05:34] LABS: Creatine Kinase MB 4.4 ng/mL (0.0-2.4)
[2017-06-01] MEDS: HYDROcodone/APAP 5-325MG 1 EACH TAB PO PRN ×2 (06:13→13:11)
[2017-06-01 07:20] LABS: Basophils % (A) 0 %; Eosinophils # (A) 0.1 k/uL (0-0.7); Eosinophils % (A) 1 %; HCT 31.5 % (39.0-53.0); HGB 10.5 gm/dL (13.0-17.5); Lymphocytes # (A) 1.8 k/uL (1.0-4.8); Lymphocytes % (A) 19 %; MCH 29.7 pg (25.0-35.0); MCHC 33.4 g/dL (31.0-37.0); Mean Platelet Volume 8.3; Monocytes # (A) 0.6 k/uL (0-1.0); Monocytes % (A) 7 %; Neutrophils # (A) 6.6 k/uL (1.3-7.7); Neutrophils % (A) 72 %; Platelet Count 170 k/uL (150-450); RBC 3.54 m/uL (4.30-5.90); RDW 14.2 % (11.5-15.5); WBC 9.1 k/uL (3.8-10.6)
[2017-06-01 07:42] LABS: Creatine Kinase 749 U/L (55-170)
[2017-06-01 07:54] LABS: Troponin I <0.012 ng/mL (0.000-0.034)
[2017-06-01] MEDS: ceFAZolin IN SWFI 2 GM/20 ML SYRINGE IVP SCH (08:06)
[2017-06-01] MEDS: ASPIRIN 325 MG TAB PO SCH (08:32)
[2017-06-01] MEDS: SODIUM CHLORIDE 0.9% 1,000 ML IV SCH (08:34)
[2017-06-01 08:38] VITALS: BP 102/64; PULSE 77; TEMP 98.5
[2017-06-01] MEDS ORDERED: MELOXICAM 7.5 MG TAB PO SCH (09:00)
--- NOTE | 2017-06-01 09:57 | P.DS ---
Providers Date of admission: 05/31/17 07:24 Expected date of discharge: 06/01/17 Attending physician: Clovis Horner Consults: 05/31/17 08:47 Consult Physician Routine Consulting Provider: Ora Jiang Consult Reason/Comments: medical management Do you want consulting provider notified?: Yes 05/31/17 16:32 Consult Physician Stat Consulting Provider: Tiny Escoto Consult Reason/Comments: chest discomfort, ekg change, hypotension, positive CKMB Do you want consulting provider notified?: Yes Primary care physician: Ora Jiang - Discharge Diagnosis(es) (1) Primary osteoarthritis of left hip Current Visit: Yes Status: Acute (2) S/P total hip arthroplasty Current Visit: Yes Status: Acute Hospital Course: This is a 62-year-old male with known history of degenerative arthritis of the left hip. The patient presents for evaluation. After discussion and consideration patient elects to proceed with total hip arthroplasty. The patient is seen preoperatively by Dr. Horner and medically cleared for surgery by their primary care physician. Patient is admitted to [facility] on 05/31/2017 for total hip arthroplasty. The procedures performed without complication or sequelae. The patient is doing well postoperatively. Labs and vital signs are stable on day of discharge. Patient did have an episode of hypotension postoperatively. Patient was evaluated by pulmonolgy and cardiology. Cardiology has ordered an echocardiogram and will follow the patient as an outpatient. Blood pressure is now within normal limits. On day of discharge patient's hip incision is healing well. There is minimal erythema. There is no drainage noted at this time. There is minimal soft tissue swelling to the hip and thigh. Patient has full foot and ankle motion without difficulty or pain. Patient is up and walking without difficulty. Neurovascular status to the left lower extremity is intact. Patient is discharged home in good condition. Please see med rec for accurate list of home medications. Plan - Discharge Summary Discharge Rx Participant: Yes New Discharge Prescriptions: New Aspirin 325 mg PO BID #60 tab HYDROcodone/APAP 5-325MG [Shobonier 5-325] 1 - 2 tab PO Q4-6H PRN #90 tab PRN Reason: Pain Sennosides [Senokot] 1 tab PO BID #60 tablet No Action Dicyclomine [Bentyl] 10 mg PO BID PRN PRN Reason: IBS Baclofen [Lioresal] 20 mg PO HS PRN PRN Reason: Muscle Spasm traMADol HCL [Ultram] 50 mg PO Q6HR PRN PRN Reason: Pain Zinc Gluconate [Zinc] 100 mg PO DAILY Vit A/Vit C/Vit E/Zinc/Copper [ICAPS SOFTGEL] 1 cap PO DAILY Simvastatin [Simvastatin] 20 mg PO HS Losartan [Cozaar] 25 mg PO DAILY Ibuprofen [Motrin] 800 mg PO Q8HR PRN PRN Reason: Pain Cranberry + Vitamin C 1 cap PO DAILY Aspirin [Adult Low Dose Aspirin EC] 81 mg PO DAILY Ascorbic Acid [Vitamin C] 1,000 mg PO DAILY Biotin 5 mg PO DAILY Gabapentin [Neurontin] 300 mg PO TID Discharge Medication List Ascorbic Acid [Vitamin C] 1,000 mg PO DAILY 04/16/16 [History] Aspirin [Adult Low Dose Aspirin EC] 81 mg PO DAILY 04/16/16 [History] Baclofen [Lioresal] 20 mg PO HS PRN 04/16/16 [History] Cranberry + Vitamin C 1 cap PO DAILY 04/16/16 [History] Dicyclomine [Bentyl] 10 mg PO BID PRN 04/16/16 [History] Ibuprofen [Motrin] 800 mg PO Q8HR PRN 04/16/16 [History] Losartan [Cozaar] 25 mg PO DAILY 04/16/16 [History] Simvastatin [Simvastatin] 20 mg PO HS 04/16/16 [History] Vit A/Vit C/Vit E/Zinc/Copper [ICAPS SOFTGEL] 1 cap PO DAILY 04/16/16 [History] Zinc Gluconate [Zinc] 100 mg PO DAILY 04/16/16 [History] traMADol HCL [Ultram] 50 mg PO Q6HR PRN 04/16/16 [History] Biotin 5 mg PO DAILY 05/23/17 [History] Gabapentin [Neurontin] 300 mg PO TID 05/27/17 [History] Aspirin 325 mg PO BID #60 tab 06/01/17 [Rx] HYDROcodone/APAP 5-325MG [Shobonier 5-325] 1 - 2 tab PO Q4-6H PRN #90 tab 06/01/17 [ Rx] Sennosides [Senokot] 1 tab PO BID #60 tablet 06/01/17 [Rx] Follow up Appointment(s)/Referral(s): Clovis Horner DO [Doctor of Osteopathic Medicine] - 2 Weeks Activity/Diet/Wound Care/Special Instructions: Weightbearing as tolerated with walker Leave dressing intact. Dressing may be removed by home care nurse in 10 days. May shower with dressing on. Follow-up with [facility] in 2 weeks, please call with any questions or concerns [phone] Discharge Disposition: HOME WITH HOME HEALTH SERVICES
[2017-06-01] MEDS ORDERED: HYDROmorphone 4 MG TABLET PO PRN (11:05)
[2017-06-01] MEDS ORDERED: HYDROmorphone 2 MG TAB PO PRN ×2 (11:05→11:06)
--- NOTE | 2017-06-01 12:12 | P.PN ---
Subjective Progress Note Date: 06/01/17 Principal diagnosis: Postoperative hypovolemic hypotension, blood loss anemia, status post left hip arthroplasty Mr. Riggs is a 62-year-old white male patient Follows with Dr. Jiang for primary care services, presented on 05/31/2017 elective left total hip arthroplasty with a direct anterior approach for diagnosis of severe osteoarthritis of the left hip. Has a past medical history of CVA, hypertension , hyperlipidemia, osteoarthritis, cataracts, glaucoma. He tolerated the procedure very well, and returned to the recovery room in stable condition. He was then transferred to inpatient room, her consulted for medical management. At around 1530 this afternoon patient started experiencing hypotension, with systolic blood pressure in the 60s limited of mercury. Nursing staff place the patient in Trendelenburg position, and patient was given 1 L of IV bolus of 0.9 normal saline. Stat hemoglobin was checked, and was at 12.3, and the preop hemoglobin was 14.4. EBL was estimated to be around 700. Patient responded to IV fluid resuscitation, and his blood pressure recovered with the most recent blood pressure at 107/57. Patient is non-tachycardic, sinus mechanism. Stat EKG was obtained for patient complaining of vague chest discomfort in the midsternal area, with no radiation. EKG showed nonspecific Q-wave in the inferior leads, stat troponin was negative 1, CK-MB and total creatinine kinase were elevated at 3.4, and 313 respectively. Could be related to muscle injury related to surgery. Patient denied any dyspnea, is complaining of some tingling sensation in bilateral hands which subsided as the blood blood pressure recovered, as stated felt a little dizzy During the episode of hypotension which is currently resolved. Currently IV fluids are infusing at the rate of 65 ML per hour. Patient is reducing urine. Cardiology was consulted. During my evaluation patient is awake, alert, initially seen in the Trendelenburg position, the blood pressure recovered head of the bed was elevated. Lung sounds are clear to auscultation, he is on room air, not requiring any supplemental oxygen. Patient is afebrile, denies any fever or chills. Left hip surgical incision is covered with a postsurgical dressing, there is some swelling at the incision site, good pedal pulses noted bilaterally , no tenderness noted bilaterally. On 06/01/2017 patient seen in follow-up. He is awake, alert, vital signs are stable, no further episodes of hypotension noted since the infusion of fluid bolus of 0.9 normal saline. Today's hemoglobin 10.5, white count is within normal limits at 9.1. Total CKs peaked at 749, and CK-MB is at 4.0, and troponins were negative 3. No chest pain, no dyspnea, lung sounds are clear to auscultation, patient is on room air, his left hip pain is controlled. He was seen in consultation by cardiology who recommended a 2-D echocardiogram and a follow-up appointment on an outpatient basis for possible stress test. Left hip incision is clean dry and intact. Patient will be discharged home today Objective - Vital Signs Vital signs: Vital Signs Temp 98.5 F 06/01/17 08:15 Pulse 77 06/01/17 08:15 Resp 16 05/31/17 12:30 BP 109/61 06/01/17 08:28 Pulse Ox 97 06/01/17 08:15 Intake & Output 05/31/17 06/01/17 06/01/17 18:59 06:59 18:59 Intake Total 1741 520 350 Output Total 1540 Balance 201 520 350 Weight 90.718 kg Intake: IV 1501 Intake, IV Titration 520 Amount Sodium Chloride 0.9% 1, 520 000 ml @ 65 mls/hr IV . [id number] [facility] Rx#:[id number] Oral 240 350 Output: Urine 840 Straight 600 Estimated Blood Loss 700 Other: Voiding Method Self-Catheterization Self-Catheterization Self-Catheterization # Voids 3 - Exam Constitutional General appearance: average body habitus, no acute distress - EENT Eyes: EOMI, normal appearance ENT: NA/AT, normal oropharynx Ears: bilateral: normal - Neck Neck: no lymphadenopathy, normal ROM Carotids: bilateral: upstroke normal Thyroid: bilateral: normal size - Respiratory Respiratory: bilateral: CTA - Cardiovascular Rhythm: regular Heart sounds: normal: S1, S2 ankle Peripheral Edema: absent: None foot Peripheral Edema: absent: None leg Peripheral Edema: absent: None - Gastrointestinal General gastrointestinal: no organomegaly, soft, no tenderness - Neurologic Neurologic: CNII-XII intact - Musculoskeletal Musculoskeletal: Left hip incision is clean dry and intact, covered with surgical dressing. Some mild swelling at the surgical incision site. - Psychiatric Psychiatric: A&O x's 3, appropriate affect, intact judgment & insight - Labs CBC & Chem 7: 06/01/17 06:41 Labs: Abnormal Lab Results - Last 24 Hours (Table) 05/31/17 05/31/17 05/31/17 Range/Units 15:21 15:21 21:55 WBC 14.3 H (3.8-10.6) k/uL RBC 4.20 L (4.30-5.90) m/uL Hgb 12.3 L (13.0-17.5) gm/dL Hct 37.2 L (39.0-53.0) % Neutrophils # 13.1 H (1.3-7.7) k/uL Lymphocytes # 0.6 L (1.0-4.8) k/uL Total Creatine Kinase 313 H 598 H (55-170) U/L CK-MB (CK-2) 3.4 H* 4.4 H* (0.0-2.4) ng/mL 06/01/17 06/01/17 Range/Units 06:41 06:41 WBC (3.8-10.6) k/uL RBC 3.54 L (4.30-5.90) m/uL Hgb 10.5 L (13.0-17.5) gm/dL Hct 31.5 L (39.0-53.0) % Neutrophils # (1.3-7.7) k/uL Lymphocytes # (1.0-4.8) k/uL Total Creatine Kinase 749 H (55-170) U/L CK-MB (CK-2) 4.0 H* (0.0-2.4) ng/mL Assessment and Plan Plan: Assessment: #1. Hypotension, related to hypovolemia, patient responded IV fluid resuscitation 1 L of 0.9 normal saline bolus. #2. Blood loss anemia, as an expected postsurgical outcome, status post left hip arthroplasty, Intra-Op EBL was estimated to be at 700 ML. Postoperative hemoglobin was 10.5 #3. Positive CK-MB and creatinine kinase, EKG was negative for any acute ischemic changes, is probably related to acute muscle injury related to surgery. Troponins were negative 3, cardiology was consulted, 2-D echo was ordered #4. Bilateral hand paresthesias, and lightheadedness related to hypotension, resolved #5. Previous history of CVA #6. Hypertension #7. Severe osteoarthritis of the left hip, status post left total hip arthroplasty with a direct anterior approach, postop day 1 #8. Hyperlipidemia #9. History of cataracts #10. Straight of multiple orthopedic surgeries including multiple back surgeries, right rotator cuff repair, left wrist ORIF Plan: Patient had no further episodes of hypotension since yesterday afternoon, his hypotension was related to hypovolemia, responded well to IV fluid resuscitation. Patient is voiding, vital signs are stable, he was seen in consultation by cardiology, and the echocardiogram was ordered. He remains stable, no acute events overnight. No chest pain or dyspnea. From pulmonary standpoint she is stable for discharge home today. Follow up with Dr. Jiang in the office in one week I performed a history & physical examination of the patient and discussed their management with my nurse practitioner, Megan Chau. I reviewed the nurse practitioner's note and agree with the documented findings and plan of care. Lung sounds are clear. The findings and the impression was discussed with the patient. I attest to the documentation by the nurse practitioner. Time with Patient: Less than 30
--- NOTE | 2017-06-01 13:45 | ECHOF ---
Referral Reason:ekg changes, hypotension MEASUREMENTS -------- HEIGHT: 177.8 cm WEIGHT: 90.7 kg BP: RVIDd: 2.8 cm (< 3.3) IVSd: 1.1 cm (0.6 - 1.1) LVIDd: 5.1 cm (3.9 - 5.3) LVPWd: 1.2 cm (0.6 - 1.1) IVSs: 1.8 cm LVIDs: 3.3 cm LVPWs: 1.8 cm LAESV Index (A-L): 29.26 ml/m Ao Diam: 3.3 cm (2.0 - 3.7) AV Cusp: 2.3 cm (1.5 - 2.6) LA Diam: 2.9 cm (2.7 - 3.8) EPSS: 0.5 cm MV E Radu: 0.71 m/s MV DecT: 409 ms MV A Radu: 0.91 m/s MV E/A Ratio: 0.78 RAP: 5.00 mmHg RVSP: 28.63 mmHg MV EF SLOPE: 102.40 mm/s (70 - 150) MV EXCURSION: 2.16 cm (> 18.000) FINDINGS -------- Sinus rhythm. This was a technically adequate study. The left ventricular size is normal. There is borderline concentric left ventricular hypertrophy. Overall left ventricular systolic function is normal with, an EF between 55 - 60 %. The right ventricle is mildly enlarged. LA is midly dilated 29-33ml/m2. The right atrium is normal in size. Aortic valve is trileaflet and is mildly thickened. There is mild aortic regurgitation. There is no evidence of aortic stenosis. The mitral valve leaflets are mildly thickened. There is trace to mild mitral regurgitation. Trace tricuspid regurgitation present. Right ventricular systolic pressure is normal at < 35 mmHg. There is no evidence of pulmonary hypertension. The pulmonic valve was not well visualized. The aortic root size is normal. Normal inferior vena cava with normal inspiratory collapse consistent with estimated right atrial pre ssure of 5 mmHg. There is no pericardial effusion. CONCLUSIONS -------- 1. Sinus rhythm. 2. This was a technically adequate study. 3. The left ventricular size is normal. 4. There is borderline concentric left ventricular hypertrophy. 5. Overall left ventricular systolic function is normal with, an EF between 55 - 60 %. 6. The right ventricle is mildly enlarged. 7. LA is midly dilated 29-33ml/m2. 8. Aortic valve is trileaflet and is mildly thickened. 9. There is mild aortic regurgitation. 10. The mitral valve leaflets are mildly thickened. 11. There is trace to mild mitral regurgitation. 12. Trace tricuspid regurgitation present. 13. Right ventricular systolic pressure is normal at < 35 mmHg. 14. There is no evidence of pulmonary hypertension. 15. The pulmonic valve was not well visualized. 16. The aortic root size is normal. 17. There is no pericardial effusion. DERMATOLOGY NURSE: Axel Birmingham RDCS
--- NOTE | 2017-06-01 14:40 | P.CRDCN ---
History of Present Illness Consult date: 06/01/17 History of present illness: Mr. Riggs is a pleasant 62-year-old male past medical history significant for dyslipidemia and hypertension. 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 We have been asked to see him in consultation for chest pain and hypotension. He is currently admitted to the hospital for elective left hip replacement secondary to osteoarthritis with Dr. Horner. Surgery was performed 05/31. Apparently last night he was resting in bed when he tried to get up to the bathroom and became acutely dizzy, nauseated and diaphoretic. Blood pressure was checked at that time was 60/40 with heart rate 53. He was placed back in bed in trendelenburg by nursing, fluid bolus and his blood pressure came up to 90-100 systolic. EKG was obtained at that time revealed sinus mechanism with non -specific ST abnormalities. He denies symptoms of chest pain or shortness of breath during that event. Once his blood pressure started rising back to baseline he described a tingling sensation in his chest and b/l arms and hands. This was very momentary and resolved on its own. He denies any further episodes like that overnight. He is currently sitting up in the chair in no acute distress. He has been up with assistance and denies any ongoing dizziness. Serial cardiac enzymes checked and found to be negative x3. Echocardiogram ordered and reveals preserved LV systolic function with EF 55-60% with mildly dilated LV and mildly enlarged RV. Current cardiac medications include losartan 25 mg daily and simvastatin 20 mg daily. Review of Systems At the time of my exam: CONSTITUTIONAL: Denies fever. Denies chills. EYES: Denies blurred vision. Denies vision changes. Denies eye pain. EARS, NOSE, MOUTH & THROAT: Denies headache. Denies sore throat. Denies ear pain. CARDIOVASCULAR: Denies chest pain. Denies shortness of breath. Denies orthopnea. Denies PND. Denies palpitations. RESPIRATORY: Denies cough. GASTROINTESTINAL: Denies abdominal pain. Denies diarrhea. Denies constipation. Denies nausea. Denies vomiting. MUSCULOSKELETAL: Denies myalgias. INTEGUMENTARY: Denies pruitis. Denies rash. NEUROLOGIC: Denies numbness. Denies tingling. Denies weakness. PSYCHIATRIC: Denies anxiety. Denies depression. ENDOCRINE: Denies fatigue. Denies weight change. Denies polydipsia. Denies polyurina. GENITOURINARY: Denies burning, hematuria or urgency with micturation. HEMATOLOGIC: Denies history of anemia. Denies bleeding. 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 has beginnings of cataracts and glaucoma, bulging cervical disc History of Any Multi-Drug Resistant Organisms: None Reported Past Surgical History: Back Surgery, Hernia Repair, Joint Replacement, Orthopedic Surgery Additional Past Surgical History / Comment(s): colonoscopy, rt rotator cuff repair, orif lt wrist, both knees replaced, rt knee scope, multiple back surgeries, pain injections, ant tlh 05/31/17 Past Anesthesia/Blood Transfusion Reactions: No Reported Reaction Past Psychological History: No Psychological Hx Reported Smoking Status: Never smoker Past Alcohol Use History: None Reported Past Drug Use History: None Reported - Past Family History Father Additional Family Medical History / Comment(s): black lung disease Mother Family Medical History: Pneumonia Medications and Allergies Home Medications Medication Instructions Recorded Confirmed Type Ascorbic Acid [Vitamin C] 1,000 mg PO DAILY 04/16/16 05/31/17 History Aspirin [Adult Low Dose Aspirin EC] 81 mg PO DAILY 04/16/16 05/31/17 History Baclofen [Lioresal] 20 mg PO HS PRN 04/16/16 05/31/17 History Cranberry + Vitamin C 1 cap PO DAILY 04/16/16 05/31/17 History Dicyclomine [Bentyl] 10 mg PO BID PRN 04/16/16 05/31/17 History Ibuprofen [Motrin] 800 mg PO Q8HR PRN 04/16/16 05/31/17 History Losartan [Cozaar] 25 mg PO DAILY 04/16/16 05/31/17 History Simvastatin [Simvastatin] 20 mg PO HS 04/16/16 05/31/17 History Vit A/Vit C/Vit E/Zinc/Copper 1 cap PO DAILY 04/16/16 05/31/17 History [ICAPS SOFTGEL] Zinc Gluconate [Zinc] 100 mg PO DAILY 04/16/16 05/31/17 History traMADol HCL [Ultram] 50 mg PO Q6HR PRN 04/16/16 05/31/17 History Biotin 5 mg PO DAILY 05/23/17 05/31/17 History Gabapentin [Neurontin] 300 mg PO TID 05/27/17 05/31/17 History Aspirin 325 mg PO BID #60 tab 06/01/17 Rx HYDROcodone/APAP 5-325MG [[place] 1 - 2 tab PO Q4-6H PRN #90 tab 06/01/17 Rx 5-325] Sennosides [Senokot] 1 tab PO BID #60 tablet 06/01/17 Rx Allergies Allergy/AdvReac Type Severity Reaction Status Date / Time No Known Allergies Allergy Verified 05/31/17 13:17 Physical Exam Vitals: Vital Signs Temp Pulse BP BP BP Pulse Ox 06/01/17 08:28 109/61 124/68 06/01/17 08:15 98.5 F 77 102/64 97 05/31/17 16:15 73 107/57 05/31/17 16:00 74 91/54 05/31/17 15:45 66 95/55 05/31/17 15:30 62 106/61 05/31/17 15:15 64 91/59 05/31/17 15:00 57 L 108/58 05/31/17 14:45 60 101/60 05/31/17 14:30 61 96/56 Intake and Output 05/31/17 06/01/17 06/01/17 22:59 06:59 14:59 Intake Total 520 350 Output Total 100 Balance 420 350 Intake: Intake, IV Titration 520 Amount Sodium Chloride 0.9% 1, 520 000 ml @ 65 mls/hr IV . [id number] Rx#:[id number] Oral 350 Output: Urine 100 Straight 100 Other: Voiding Method Self-Catheterization Self-Catheterization # Voids 3 Blood pressure 109/61 heart rate 77 afebrile maintaining oxygen saturation on room air GENERAL: This is a 62-year-old male in no apparent distress at the time of my examination. HEENT: Head is atraumatic, normocephalic. Pupils are equal, round. Sclerae anicteric. Conjunctivae are clear. Mucous membranes of the mouth are moist. Neck is supple. There is no jugular venous distention. No carotid bruit is heard. LUNGS: Clear to auscultation no wheezes, rales or rhonchi. No chest wall tenderness is noted on palpation or with deep breathing. HEART: Regular rate and rhythm without murmurs, rubs or gallops. S1 and S2 heard. ABDOMEN: Soft, nontender. Bowel sounds are heard. No organomegaly noted. EXTREMITIES: No evidence of peripheral edema and no calf tenderness noted. VASCULAR: Radial and dorsalis pedis pulses palpated, no evidence of clubbing. NEUROLOGIC: Patient is awake, alert and oriented x3. Results 06/01/17 06:41 Cardiac Enzymes 05/31/17 05/31/17 06/01/17 Range/Units 15:21 21:55 06:41 CK-MB (CK-2) 3.4 H* 4.4 H* 4.0 H* (0.0-2.4) ng/mL Troponin I <0.012 <0.012 <0.012 (0.000-0.034) ng/mL CBC 05/31/17 06/01/17 Range/Units 15:21 06:41 WBC 14.3 H 9.1 (3.8-10.6) k/uL RBC 4.20 L 3.54 L (4.30-5.90) m/uL Hgb 12.3 L 10.5 L (13.0-17.5) gm/dL Hct 37.2 L 31.5 L (39.0-53.0) % Plt Count 202 170 (150-450) k/uL Current Medications Generic Name Dose Route Start Last Admin Trade Name Freq PRN Reason Stop Dose Admin Hydrocodone Bitart/Acetaminophen 1 each 05/31/17 08:47 [place] 5-325 PO Q6HR PRN Pain Scale 1 to 5 Hydrocodone Bitart/Acetaminophen 2 each 05/31/17 08:47 06/01/17 13:11 [place] 5-325 PO 2 each Q6HR PRN Administration Pain Scale 6 to 10 Aspirin 325 mg 05/31/17 09:00 06/01/17 08:32 Aspirin PO 325 mg BID MANUEL Administration Diazepam 2.5 mg 05/31/17 08:47 Valium PO Q8HR PRN Mild Spasms Diazepam 5 mg 05/31/17 08:47 Valium PO Q8HR PRN Moderate to Severe Spasms Hydromorphone HCl 4 mg 06/01/17 11:05 Dilaudid PO Q3HR PRN Pain Scale 7 to 10 Hydromorphone HCl 2 mg 06/01/17 11:05 Dilaudid PO Q3HR PRN Pain Scale 4 to 6 Hydromorphone HCl 1 mg 06/01/17 11:06 Dilaudid PO Q3HR PRN Pain Scale 1 to 3 Hydroxyzine Pamoate 25 mg 05/31/17 08:47 Vistaril PO Q4HR PRN Nausea, Anxiety, Pain Control Lactated Ringer's 1,000 mls @ 20 mls/hr 05/30/17 20:00 05/31/17 21:28 Lactated Ringers IV Not Given .Q24H MANUEL Sodium Chloride 1,000 mls @ 65 mls/hr 05/31/17 09:00 06/01/17 08:34 Saline 0.9% IV Not Given .[id number] [facility] Lidocaine HCl 0.1 ml 05/30/17 20:00 .Xylocaine 1% Inj (10mg/Ml) For Iv Start INTRADERMA PER PROTOCOL PRN IV Start Magnesium Hydroxide 2,400 mg 05/31/17 08:47 Milk Of Magnesia PO DAILY PRN Constipation Meloxicam 7.5 mg 06/01/17 09:00 06/01/17 08:32 Mobic PO 7.5 mg DAILY MANUEL Administration Naloxone HCl 0.2 mg 05/31/17 08:47 Narcan IV Q2M PRN Opioid Reversal Ondansetron HCl 4 mg 05/31/17 08:47 05/31/17 14:24 Zofran IVP 4 mg DAILY PRN Administration Nausea And Vomiting Senna/Docusate Sodium 2 each 05/31/17 21:00 05/31/17 21:20 Senokot-S PO 2 each HS MANUEL Administration Intake and Output 05/31/17 06/01/17 06/01/17 22:59 06:59 14:59 Intake Total 520 350 Output Total 100 Balance 420 350 Intake: Intake, IV Titration 520 Amount Sodium Chloride 0.9% 1, 520 000 ml @ 65 mls/hr IV . [id number] [facility] Rx#:[id number] Oral 350 Output: Urine 100 Straight 100 Other: Voiding Method Self-Catheterization Self-Catheterization # Voids 3 06/01/17 06:41 Assessment and Plan Assessment: ASSESSMENT 1. Hypotension secondary to acute blood loss and possibly some anesthesia effect 2. History of hypertension currently maintained on losartan 3. Dyslipidemia currently on a statin 4. Status post elective left hip arthroplasty secondary to osteoarthritis PLAN 2-D echocardiogram and Doppler study was obtained and reviewed. An acute coronary event has been ruled out with cardiac enzymes and no EKG evidence of acute ischemia. Further cardiac workup at this time. Patient does have significant risk factors for heart disease with dyslipidemia and hypertension. In light of this he recommend he follow-up as an outpatient with Dr. Bateman in 2-3 weeks when he is healed from his surgery for outpatient stress testing. Thank you kindly for this consultation. The above impression and plan of care have been discussed and directed by the signing physician. Teetee Jerry, nurse practitioner, acting as scribe for signing physician.
== END 2017-06-01 15:08 | disposition home health service (06) | DRG 470 ==
LOC: 2ORMAIN 07:24 → 3SUR 10:54
PROVIDERS: ADMIT Orthopaedic Surgery; ATTEND Orthopaedic Surgery
PROC: 30233N0 Transfusion of Autologous Red Blood Cells into Peripheral Vein, Percutaneous Approach (ICD-10-PCS; 2017-05-31)
PROC: 0SRB06A Replacement of Left Hip Joint with Oxidized Zirconium on Polyethylene Synthetic Substitute, Uncemented, Open Approach (ICD-10-PCS; principal; 2017-05-31 09:15)
DX: M16.12 Unilateral primary osteoarthritis, left hip (principal); I95.89 Other hypotension; G62.9 Polyneuropathy, unspecified; D62 Acute posthemorrhagic anemia; E86.1 Hypovolemia; R07.89 Other chest pain; E78.5 Hyperlipidemia, unspecified; H91.90 Unspecified hearing loss, unspecified ear; I10 Essential (primary) hypertension; M21.371 Foot drop, right foot; K58.9 Irritable bowel syndrome, unspecified; F51.01 Primary insomnia; E78.00 Pure hypercholesterolemia, unspecified; M50.10 Cervical disc disorder with radiculopathy, unspecified cervical region; H40.9 Unspecified glaucoma; H26.9 Unspecified cataract; Z79.82 Long term (current) use of aspirin; Z79.899 Other long term (current) drug therapy; Z96.653 Presence of artificial knee joint, bilateral; Z86.73 Personal history of transient ischemic attack (TIA), and cerebral infarction without residual deficits; Z87.81 Personal history of (healed) traumatic fracture; Z82.0 Family history of epilepsy and other diseases of the nervous system; Z81.1 Family history of alcohol abuse and dependence; Z83.6 Family history of other diseases of the respiratory system
CPT/HCPCS: 73501; 82550; 82553; 84484; 85025; 86850; 86891; 86900; 86901; 88300; 93005; 93306

== ENCOUNTER → 2017-07-27 | Outpatient (CLI) | payer MEDICARE ==
[2017-07-27 10:51] LABS: ALT 39 U/L (21-72); AST 26 U/L (17-59); Albumin 4.2 g/dL (3.5-5.0); Alkaline Phosphatase 86 U/L (38-126); Anion Gap 11 mmol/L; Blood Urea Nitrogen 17 mg/dL (9-20); Calcium 9.2 mg/dL (8.4-10.2); Carbon Dioxide 29 mmol/L (22-30); Chloride 104 mmol/L (98-107); Cholesterol 149 mg/dL (<200); Glucose 86 mg/dL (74-99); HDL Cholesterol 46 mg/dL (40-60); LDL Cholesterol,Calculated 83 mg/dL (0-99); Potassium 4.2 mmol/L (3.5-5.1); Sodium 144 mmol/L (137-145); Total Bilirubin 0.8 mg/dL (0.2-1.3); Total Protein 6.8 g/dL (6.3-8.2); Triglycerides 102 mg/dL (<150)
[2017-07-27 11:04] LABS: Basophils % (A) 1 %; Eosinophils # (A) 0.1 k/uL (0-0.7); Eosinophils % (A) 2 %; HCT 44.9 % (39.0-53.0); Lymphocytes # (A) 1.6 k/uL (1.0-4.8); Lymphocytes % (A) 30 %; MCH 28.6 pg (25.0-35.0); MCV 86.7 fL (80.0-100.0); Mean Platelet Volume 7.7; Monocytes # (A) 0.4 k/uL (0-1.0); Monocytes % (A) 8 %; Neutrophils # (A) 3.1 k/uL (1.3-7.7); Neutrophils % (A) 58 %; Platelet Count 210 k/uL (150-450); RBC 5.18 m/uL (4.30-5.90); RDW 14.3 % (11.5-15.5); WBC 5.4 k/uL (3.8-10.6)
[2017-07-27 11:06] LABS: T4, Free (Free Thyroxine) 1.08 ng/dL (0.78-2.19)
[2017-07-27 11:20] LABS: HGB 14.8 gm/dL (13.0-17.5)
== END | disposition home or self-care (01) ==
LOC: LABWHC1 10:20
PROVIDERS: ATTEND Internal Medicine
DX: Z00.00 Encounter for general adult medical examination without abnormal findings (principal); E78.5 Hyperlipidemia, unspecified
CPT/HCPCS: 36415; 80053; 80061; 84439; 84443; 85025

== ENCOUNTER → 2018-08-08 | Outpatient (CLI) | payer MEDICARE ==
[2018-08-08 16:53] LABS: Albumin 3.9 g/dL (3.80-4.90); Albumin/Globulin Ratio 1.56 (1.60-3.17); Anion Gap 7.6 mmol/L (4.00-12.00); Calcium 8.7 mg/dL (8.7-10.3); Carbon Dioxide 25.4 mmol/L (21.6-31.8); Globulin 2.5 g/dL (1.6-3.3); Potassium 3.8 mmol/L (3.5-5.5); Total Bilirubin 0.8 mg/dL (0.3-1.2); Total Protein 6.4 g/dL (6.2-8.2)
[2018-08-08 16:54] LABS: LDL Cholesterol,Calculated 93.6 mg/dL (0.0-131.0); VLDL Calculation 17.4 mg/dL (5.00-40.00)
[2018-08-08 17:01] LABS: T4, Free (Free Thyroxine) 1.1 ng/dL (0.80-1.80)
== END | disposition home or self-care (01) ==
LOC: LABWHC1 09:26
PROVIDERS: ATTEND Internal Medicine
DX: Z00.00 Encounter for general adult medical examination without abnormal findings (principal); E78.5 Hyperlipidemia, unspecified; R21 Rash and other nonspecific skin eruption; R25.2 Cramp and spasm
CPT/HCPCS: 36415; 80053; 80061; 83735; 84439; 84443; 85652; 86038

== ENCOUNTER → 2018-09-07 | Outpatient (CLI) | payer MEDICARE ==
[2018-09-07 10:38] LABS: African American GFR (CKD) >90 (>60 ml/min/1.73 sqM); Anion Gap 9 mmol/L; Blood Urea Nitrogen 20 mg/dL (9-20); Carbon Dioxide 27 mmol/L (22-30); Chloride 107 mmol/L (98-107); Glucose 88 mg/dL (74-99); Sodium 143 mmol/L (137-145)
[2018-09-07 10:41] LABS: HCT 44.5 % (39.0-53.0); HGB 15.1 gm/dL (13.0-17.5); MCV 88.4 fL (80.0-100.0); Mean Platelet Volume 7.3; Platelet Count 206 k/uL (150-450); RBC 5.03 m/uL (4.30-5.90); RDW 13.9 % (11.5-15.5); WBC 5.6 k/uL (3.8-10.6)
== END | disposition home or self-care (01) ==
LOC: LABWHC1 09:57
PROVIDERS: ATTEND Internal Medicine Interventional Cardiology
DX: Z01.812 Encounter for preprocedural laboratory examination (principal); E78.5 Hyperlipidemia, unspecified; R07.89 Other chest pain
CPT/HCPCS: 36415; 80051; 82565; 82947; 83735; 84520; 85027

== ENCOUNTER → 2018-09-14 | Day surgery (SDC) | payer MEDICARE ==
[2018-09-12 09:24] VITALS: BMI 29.1
[~2018-09-14] MED LIST changes: -ACETAMINOPHEN TAB 500 MG TAB PO ONE; +ALPRAZolam 0.25 MG TAB PO PRN; +ALPRAZolam 0.5 MG TAB PO PRN; +ASPIRIN 325 MG TAB PO STA; +ATORVASTATIN 80 MG TAB PO STA; -DEXAMETHASONE SOD PHOSPHATE 10 MG/ML 1 ML VIAL IV ONE; +HEPARIN SODIUM 1,000 UN/ML (10ML VL) IV ONE; +HEPARIN SODIUM 1,000 UN/ML (10ML VL) ONE; -HYDROmorphone 0.5 MG/0.5 ML SYRINGE IVP PRN; +IOPAMIDOL-370 125ML BTL INJ ONE; -LIDOCAINE 1% 20 ML VIAL (10MG/ML) FOR IV START INTRADERMA PRN; +LIDOCAINE 1% INJ 10MG/ML (20 ML MDV) ONE; +LIDOCAINE 1% INJ 10MG/ML (20 ML MDV) SQ ONE; -MELOXICAM 7.5 MG TAB PO ONE; +MIDAZOLAM (PF) 2 MG/2 ML VIAL IV ONE; -MIDAZOLAM 2 MG/2 ML VIAL IV PRN; +NITROGLYCERIN SL TABS 0.4 MG TAB SUBLINGUAL PRN; -ONDANSETRON 4 MG/2 ML VIAL IVP ONE; -ROPIVACAINE 246.25 MG, EPINEPHrine 0.5 MG, KETOROLAC 30 MG, cloNIDine HCL/PF 80 MCG, WA... MISCELLANE ONE; +RX INFO: IV CONTRAST WAS GIVEN 1 EACH MISC MISCELLANE PRN; -SCOPOLAMINE 1.5MG/72HR PATCH TRANSDERM ONE; +SODIUM CHLORIDE 0.9% 1,000 ML IV ONE; +SODIUM CHLORIDE 0.9% 1,000 ML IV SCH; +SODIUM CHLORIDE 0.9% 1,000 ML in EMPTY BAG 1 BAG IV ONE; -TRANEXAMIC ACID 1,000 MG in SODIUM CHLORIDE 0.9% 50 ML IVPB ONE; +VERAPAMIL 2.5 MG/ML 2 ML AMP ONE; -ceFAZolin IN SWFI 2 GM/20 ML SYRINGE IVP ONE; -fentaNYL (PF) 50 MCG/ML 2 ML AMP IV PRN
[2018-09-14 08:18] VITALS: RESP 16
[2018-09-14] MEDS: VERAPAMIL SYRINGE (5 MG/10 ML) INTRAARTER ONE ×2 (08:56→09:06)
--- NOTE | 2018-09-14 09:32 | LTR ---
Date of Service: 09/14/2018 RE: Jeremy Riggs Dear Dr. Jiang; Mr. Jeremy Riggs underwent today a heart catheterization and that revealed intermediate disease involving the mid left anterior descending artery, appeared to be in the range of 50% only. I did recommend maximized medical treatment including aggressive cholesterol control and follow up with him. I want to thank you for allowing us to participate in his care and please do not hesitate to call if you have any question or concern. Sincerely, MD ROCKY Weems / JUDAH: [id number] /
--- NOTE | 2018-09-14 09:36 | CC ---
CARDIAC CATHETERIZATION REPORT DATE OF SERVICE: September 14, 2018. PERFORMING PHYSICIAN: Sonu Maria MD, clinical laboratory service teacher. PROCEDURES PERFORMED: 1. Selective right and left coronary angiogram. 2. Left heart catheterization. INDICATION: This is a 63-year-old gentleman with hypertension, dyslipidemia, and significant family history of coronary artery disease, was experiencing symptoms of chest discomfort concerning for severe underlying coronary artery disease. Because of that, a heart catheterization was advised. APPROACH: Right radial artery. COMPLICATION: None. LEVEL OF SEDATION: Moderate with a sedation length of 13 minutes. PROCEDURE DESCRIPTION: An informed consent, the patient was brought to cardiac ballistics laboratory gunsmith. The right radial artery was cannulated using micropuncture technique, then I placed a 5-Lao. I did give the patient 2 mg of verapamil IA and 10,000 units of heparin IV. Selective right and left coronary angiogram performed using JR4 and JL3.5 catheters. Left heart catheterization was performed pigtail catheter. The procedure was completed without any complication. SELECTIVE CORONARY ANGIOGRAM: 1. The right coronary artery is a large caliber vessel and is a dominant vessel and appeared to be angiographically normal. It distally bifurcates into PDA and PLV branches, both appeared to be angiographically normal. 2. The left main is angiographically normal. It bifurcates into left circumflex and left anterior descending artery as well as ramus intermedius. 3. Left circumflex is a large caliber vessel. It is a nondominant vessel and appeared to be angiographically normal. 4. The ramus intermedius is a moderate caliber vessel and seems to be angiographically normal. 5. The LAD: The proximal LAD appeared to be normal. The mid LAD has a tubular lesion appeared to be in the range of 50% only. The LAD distally appeared to be normal. The LAD in the midportion gives rise into a diagonal branch which seems to be angiographically normal. HEMODYNAMICS: The left ventricular end-diastolic pressure was about 6 mmHg without significant gradient across the aortic valve. 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 POSTPROCEDURE MANAGEMENT: 1. Maximize medical treatment at this point of time. 2. Aggressive cholesterol control. 3. If the patient continues to have chest discomfort, I will obtain either myocardial perfusion imaging stress test or FFR of the LAD. MMODL / IJN: [id number] /
[2018-09-14 16:36] VITALS: BP 135/75; PULSE 55
== END ==
LOC: CATHCVL 07:46
PROVIDERS: ATTEND Internal Medicine Interventional Cardiology
DX: I25.110 Atherosclerotic heart disease of native coronary artery with unstable angina pectoris (principal); I10 Essential (primary) hypertension; E78.5 Hyperlipidemia, unspecified; E78.00 Pure hypercholesterolemia, unspecified; Z82.49 Family history of ischemic heart disease and other diseases of the circulatory system; Z79.1 Long term (current) use of non-steroidal anti-inflammatories (NSAID); Z79.82 Long term (current) use of aspirin; Z79.899 Other long term (current) drug therapy
CPT/HCPCS: 93458; C1769; C1894; J2001; J1644; Q9967; J2250

== ENCOUNTER → 2019-10-25 | Outpatient (CLI) | payer MEDICARE ==
[2019-10-25 12:31] LABS: Basophils # (A) 0.1 k/uL (0-0.2); Basophils % (A) 1 %; Eosinophils # (A) 0.1 k/uL (0-0.7); Eosinophils % (A) 2 %; HCT 47.6 % (39.0-53.0); HGB 15.5 gm/dL (13.0-17.5); Lymphocytes % (A) 28 %; MCH 29.4 pg (25.0-35.0); MCHC 32.6 g/dL (31.0-37.0); MCV 89.9 fL (80.0-100.0); Mean Platelet Volume 8.4; Monocytes # (A) 0.5 k/uL (0-1.0); Monocytes % (A) 7 %; Neutrophils # (A) 4.2 k/uL (1.3-7.7); Neutrophils % (A) 61 %; Platelet Count 208 k/uL (150-450); RBC 5.29 m/uL (4.30-5.90); RDW 13.9 % (11.5-15.5); WBC 6.9 k/uL (3.8-10.6)
[2019-10-25 18:46] LABS: African American GFR (CKD) 110.2 (60.0-200.0); Albumin 4.1 g/dL (3.80-4.90); Albumin/Globulin Ratio 1.64 (1.60-3.17); Anion Gap 7.6 mmol/L (4.00-12.00); BUN/Creat Ratio 27.5 Ratio (12.00-20.00); Calcium 9.1 mg/dL (8.7-10.3); Carbon Dioxide 27.4 mmol/L (21.6-31.8); Chol/HDL Ratio 3.82; Globulin 2.5 g/dL (1.6-3.3); LDL Cholesterol,Calculated 103.6 mg/dL (0.0-131.0); Magnesium 1.9 mg/dL (1.5-2.4); Non-African American GFR(CKD) 95.1 (60.0-200.0); Potassium 4.2 mmol/L (3.5-5.5); Total Bilirubin 0.8 mg/dL (0.2-1.2); Total Protein 6.6 g/dL (6.2-8.2); VLDL Calculation 20.4 mg/dL (5.00-40.00)
[2019-10-25 18:54] LABS: T4, Free (Free Thyroxine) 1.3 ng/dL (0.80-1.80)
[2019-10-25 21:08] LABS: Erythrocyte Sedimentation Rate 3 mm/Hr (0-20)
== END | disposition home or self-care (01) ==
LOC: LABWHC1 11:33
PROVIDERS: ATTEND Internal Medicine
DX: Z00.00 Encounter for general adult medical examination without abnormal findings (principal); E55.9 Vitamin D deficiency, unspecified; R53.1 Weakness; R53.83 Other fatigue
CPT/HCPCS: 36415; 80053; 80061; 82306; 82533; 82607; 83735; 84403; 84439; 84443; 85025; 85652

== ENCOUNTER → 2020-04-17 | Outpatient (CLI) | payer MEDICARE ==
[2020-04-18 08:49] LABS: Prostate Specific Antigen 2.2 ng/mL (0.0-4.5)
== END | disposition home or self-care (01) ==
LOC: LABWHC1 11:22
PROVIDERS: ATTEND Internal Medicine
DX: E55.9 Vitamin D deficiency, unspecified (principal)
CPT/HCPCS: 36415; 82306; 84153

== ENCOUNTER → 2020-11-25 | Outpatient (CLI) | payer MEDICARE ==
[2020-11-26 09:10] LABS: ALT 17 U/L (10-49); AST 16 U/L (14-35); African American GFR (CKD) 100.5 (60.0-200.0); Albumin 4.1 g/dL (3.8-4.9); Albumin/Globulin Ratio 1.65 (1.60-3.17); Alkaline Phosphatase 80 U/L (41-126); BUN/Creat Ratio 25.65 Ratio (12.00-20.00); Blood Urea Nitrogen 23.8 mg/dL (9.0-27.0); Calcium 9.3 mg/dL (8.7-10.3); Carbon Dioxide 20.5 mmol/L (21.6-31.8); Chloride 108 mmol/L (96-109); Chol/HDL Ratio 3.59 Ratio; Globulin 2.5 g/dL (1.6-3.3); Glucose 89 mg/dL (70-110); LDL Cholesterol,Calculated 97.6 mg/dL (0.0-131.0); Non-African American GFR(CKD) 86.7 (60.0-200.0); Potassium 4.3 mmol/L (3.5-5.5); Sodium 143 mmol/L (135-145); Total Protein 6.6 g/dL (6.2-8.2); VLDL Calculation 17.82 mg/dL (5.00-40.00)
[2020-11-26 10:32] LABS: Vitamin B12 >2000.0 pg/mL (200.0-944.0)
== END | disposition home or self-care (01) ==
LOC: LABWHC1 10:54
PROVIDERS: ATTEND Internal Medicine
DX: Z00.00 Encounter for general adult medical examination without abnormal findings (principal); E78.5 Hyperlipidemia, unspecified
CPT/HCPCS: 36415; 80053; 80061; 82607; 84153; 84439; 84443

== ENCOUNTER → 2021-07-14 | Outpatient (CLI) | payer MEDICARE ==
--- NOTE | 2021-07-14 09:44 | CT ---
EXAMINATION TYPE: CT thoracic spine wo con, CT lumbar spine wo con DATE OF EXAM: 07/14/2021 COMPARISON: Outside Lumbar spine x-ray June 29, 2021. MRI lumbar spine July 16, 2010 HISTORY: Low back pain (accession [id number]), mid back pain (accession [id number]) CT DLP: 1277 (accession [id number]), 72 (accession [id number]) mGycm Automated exposure control for dose reduction was used. FINDINGS: Thoracic spine show straightened alignment. There is round 8 mm sclerotic focus posterior l eft T12 level coronal image 24 which is nonspecific favor benign bone island. Spinal canal is preserv ed. Vertebral body heights are maintained. Some disc desiccation in the mid to lower thoracic spine w ith disc space heights are fairly well-preserved. No large posterior disc herniations in the thoracic spine. Posterior spur disc complex effacing the anterior thecal sac C6-C7 level sagittal image 26. Calcified subcarinal lymph nodes are appreciated. Visualized ribs are intact. Lumbar spine exam is significantly suboptimal due to marked underpenetration. There are 5 lumbar-type vertebra redemonstrated. There is [id number] anterior height loss or wedging at the L1 vertebr a redemonstrated. Slight grade 1 retrolisthesis L1 on L2 again seen. Loss of normal curvature with pe ak kyphosis at the thoracolumbar junction. There is evidence of posterior decompression with spinous process resection at the T12-L1 levels. Large anterior osteophytes L1-L2 level are now identified. Th ere is moderate disc space narrowing with vacuum disc phenomenon at L3-L4 level. There is mild to mod erate disc space narrowing greatest posteriorly at the L4-L5 level with vacuum disc phenomenon. There is multilevel facet arthropathy in the lower lumbar spine being moderate bilateral L4-L5 and advance d bilateral L5-S1 levels. Evaluation for disc herniation nondiagnostic along with intra-abdominal str uctures. IMPRESSION: Straightening of the thoracic spine. Markedly suboptimal evaluation of the lumbar spine w ith degenerative changes noted as detailed above.
== END | disposition home or self-care (01) ==
LOC: RADCTMAIN 08:07
PROVIDERS: ATTEND Orthopaedic Surgery
DX: M47.816 Spondylosis without myelopathy or radiculopathy, lumbar region (principal); M51.26 Other intervertebral disc displacement, lumbar region; M99.73 Connective tissue and disc stenosis of intervertebral foramina of lumbar region
CPT/HCPCS: 72128; 72131

== ENCOUNTER → 2021-08-05 | Outpatient (CLI) | payer MEDICARE ==
[2021-08-05 14:24] LABS: Basophils # (A) 0.05 X 10*3/uL (0.00-0.10); Basophils % (A) 0.7 %; Eosinophils # (A) 0.15 X 10*3/uL (0.04-0.35); Eosinophils % (A) 2.2 %; HCT 48.3 % (39.6-50.0); HGB 15.8 g/dL (13.0-17.0); Immature Grans, Automated 0.3 %; Lymphocytes # (A) 2.06 X 10*3/uL (0.90-5.00); Lymphocytes % (A) 30.7 %; MCH 29.4 pg (27.0-32.0); MCHC 32.7 g/dL (32.0-37.0); MCV 89.9 fL (80.0-97.0); Mean Platelet Volume 11.3 fL (9.5-12.2); Monocytes # (A) 0.57 X 10*3/uL (0.20-1.00); Monocytes % (A) 8.5 %; NRBC Per 100 WBC 0 /100 WBCS (0.0-0.0); Neutrophils # (A) 3.86 X 10*3/uL (1.80-7.70); Neutrophils % (A) 57.6 %; Platelet Count 197 X 10*3/uL (140-440); RBC 5.37 X 10*6/uL (4.40-5.60); RDW 13.5 % (11.5-14.5); WBC 6.71 X 10*3/uL (4.50-10.00)
[2021-08-05 14:36] LABS: Erythrocyte Sedimentation Rate 4 mm/Hr (0-20)
[2021-08-05 14:47] LABS: African American GFR (CKD) 91.1 (60.0-200.0); Albumin 4.3 g/dL (3.8-4.9); Albumin/Globulin Ratio 1.72 (1.60-3.17); Anion Gap 8.8 mmol/L (10.00-18.00); Calcium 9.1 mg/dL (8.7-10.3); Carbon Dioxide 27.2 mmol/L (20.0-27.5); Globulin 2.5 g/dL (1.6-3.3); Non-African American GFR(CKD) 78.6 (60.0-200.0); Potassium 4.6 mmol/L (3.5-5.5); T4, Free (Free Thyroxine) 1.17 ng/dL (0.800-1.800); Total Bilirubin 0.6 mg/dL (0.30-1.20); Total Protein 6.8 g/dL (6.2-8.2)
== END | disposition home or self-care (01) ==
LOC: LABWHC1 09:35
PROVIDERS: ATTEND Internal Medicine
DX: R53.1 Weakness (principal); R53.83 Other fatigue
CPT/HCPCS: 36415; 80053; 83036; 84439; 84443; 85025; 85652

== ENCOUNTER → 2021-08-24 | Outpatient (CLI) | payer MEDICARE ==
--- NOTE | 2021-08-24 08:25 | P.PAINPG ---
PQRS Measure Charge Sheet Comment: HISTORY OF PRESENT ILLNESS: 66 yr old male as a referral from Dr Isaacs presents today with severe and chronic LBP secondary to disc bulges, scoliosis, neuroforaminal stenoses and facet arthropathy for evaluation. Patient states his pain level is 5 out of 10 intensity, neck pain, tightness, constant for the last 6 months in the mid to lower aspects of his lumbar spine. Patient complains of lower back pain on and off for the last year and half admits to a lower back injury status post fall of 3 and 1975. He was hospitalized for several weeks and required several lumbar surgeries including bilateral laminectomies and left manuel-laminectomy. Pain is relieved with medications, injections of the cervical spine in the past, heat, physical therapy 2-3 years ago, home stretching regimen, use of a cane for ambulation, repositioning and rest. PMH: HTN, OA, L Occular CVA/TIA, Eye Disorder, Hyperlipidemia PSH: R RCT Repair, L Wrist ORIF, BL Knee Replacement. R Knee Arthroscopy, Lumbar Surgeries, Ant TL (2018) SH: Negative x 3 FH: Father- Black Lung Disease. Mother- Pneumonia. All: NKDA Meds: See list REVIEW OF ORGAN SYSTEMS: CONSTITUTIONAL: No fevers or chills. No recent weight loss. NEUROLOGICAL: + numbness and tingling along the distal ex tremities. No seizure disorders or headaches. MUSCULOSKELETAL: + pain PSYCHIATRIC: Denies current depression or suicidal thoughts. Physical Examinations : Constitutional : Cooperative , not in acute distress . Neurologic : Cranial nerve II to XII intact. No focal neurological deficits. Psychiatric : alert & oriented x 3. Matching mood & appropriate affect. Judgment & insight intact. Musculoskeletal : Cervical Spine Motor strength in the deltoid and biceps: Normal right side. Normal Left side Motor strength biceps and the wrist extensors: Normal right side . Normal left side Motor strength in the triceps muscle: Normal right side. Normal left side Deep tendon reflexes: Normal at the biceps. Normal at Brachioradialis. Normal at triceps Vertebral body tenderness to deep palpation over Cervical facet loading test: positive bilaterally Spurling test: positive bilaterally Neck distraction test: positive bilaterally Chris sign: positive bilaterally Lumbar spine Motor strength lower extremities ,thigh and legs 5/5 Right side , 5/5 Left side Deep tendon reflexes : Normal Knee Jerk. Normal Ankle Jerk Vertebral body tenderness over L3, L4 Lumbar facet Loading Test: positive Right / positive Left Range of motion of the lumbar spine Flexion 30 degrees, extension 10 degrees Straight Leg Raise test: Left/ Right positive at degree Luz Elena test: positive right / positive left. Severe tenderness over the Sacroiliac joint on the Right / Left sides Gaenslen test: positive bilaterally Seated flexion test: positive bilaterally. Sacral spine : Severe tenderness over the Sacroiliac joint: right side / left side Range of motion: Flexion of the lumbar spine <60 degrees Range of motion: Extension of the lumbar spine <20 degrees Gaenslen's Test positive Myles's Test positive Luz Elena test: positive right side / left side Thigh Thrust Test Sacral Thrust Test Imaging: MRI without contrast of the lumbar spine from 03/14/20 reviewed. Assessment/ Plan : Lumbar DDD Recommendation of RIRI L3-L4. May need a series of injections, up to 3 within a 6 mo period, for optimal pain relief. May try PT as his last sessions were 2-3 yrs ago. Risks, benefits of procedure discussed and patient verbalized understanding. Denies aspirin or anti- coagulant use or medical history of diabetes. Protocol for discontinuation/ continuation of medications urban procedure discussed. All questions answered. I have spent greater than 30 minutes on patient care today. Dr Munoz was available by phone for the evaluation of this patient. The time was used to review the medical records including relevant urine studies and Prescription history (MAPs), review of the available imaging, evaluation and examination of the patient, coordination of care with the medical staff and if applicable referring physicians, as well as creation of the medical record PQRS Narrative: Smoking Status Never smoker Home Medications: Ambulatory Orders Aspirin [Adult Low Dose Aspirin EC] 81 mg PO DAILY 04/16/16 Baclofen [Lioresal] 20 mg PO HS PRN 04/16/16 Cranberry + Vitamin C 1 cap PO DAILY 04/16/16 Dicyclomine [Bentyl] 10 mg PO BID PRN 04/16/16 Simvastatin 20 mg PO HS 04/16/16 Vit A/Vit C/Vit E/Zinc/Copper [ICAPS SOFTGEL] 1 cap PO DAILY 04/16/16 traMADol HCL [Ultram] 50 mg PO Q6HR PRN 04/16/16 Biotin 5 mg PO DAILY 05/23/17 Losartan [Cozaar] 25 mg PO DAILY #0 06/01/17 Ibuprofen 800 mg PO Q8H PRN 09/12/18 Thiamine [Vitamin B-1] 50 mg PO DAILY 09/12/18 Controlled Substance Measures - Controlled Substance Measures Is patient prescribed a controlled substance at discharge?: No
[2021-08-24 08:59] VITALS: BP 122/73; PULSE 56; RESP 14; TEMP 98.7
== END ==
LOC: PNWHC3 07:39
PROVIDERS: ATTEND Specialist
DX: M48.061 Spinal stenosis, lumbar region without neurogenic claudication (principal); M51.16 Intervertebral disc disorders with radiculopathy, lumbar region; I10 Essential (primary) hypertension; M19.90 Unspecified osteoarthritis, unspecified site; Z86.73 Personal history of transient ischemic attack (TIA), and cerebral infarction without residual deficits; E78.5 Hyperlipidemia, unspecified
CPT/HCPCS: 99211

== ENCOUNTER → 2021-09-29 | Day surgery (SDC) | payer MEDICARE ==
[2021-09-25 11:08] VITALS: BMI 30.4
[~2021-09-29] MED LIST changes: -ALPRAZolam 0.25 MG TAB PO PRN; -ALPRAZolam 0.5 MG TAB PO PRN; -ASPIRIN 325 MG TAB PO STA; -ATORVASTATIN 80 MG TAB PO STA; -HEPARIN SODIUM 1,000 UN/ML (10ML VL) IV ONE; -HEPARIN SODIUM 1,000 UN/ML (10ML VL) ONE; +IOPAMIDOL M200 10 ML VIAL ONE; -IOPAMIDOL-370 125ML BTL INJ ONE; +LACTATED RINGERS 1,000 ML IV SCH; +LIDOCAINE 1% (10MG/ML) FOR IV START INTRADERMA PRN; -LIDOCAINE 1% INJ 10MG/ML (20 ML MDV) ONE; -LIDOCAINE 1% INJ 10MG/ML (20 ML MDV) SQ ONE; -MIDAZOLAM (PF) 2 MG/2 ML VIAL IV ONE; -NITROGLYCERIN SL TABS 0.4 MG TAB SUBLINGUAL PRN; -RX INFO: IV CONTRAST WAS GIVEN 1 EACH MISC MISCELLANE PRN; -SODIUM CHLORIDE 0.9% 1,000 ML IV ONE; -SODIUM CHLORIDE 0.9% 1,000 ML IV SCH; -SODIUM CHLORIDE 0.9% 1,000 ML in EMPTY BAG 1 BAG IV ONE; -VERAPAMIL 2.5 MG/ML 2 ML AMP ONE; +methylPREDNISolone ACETATE 80 MG/ML 1 ML VIAL ONE
[2021-09-29 12:56] VITALS: TEMP 98.2
--- NOTE | 2021-09-29 13:32 | P.PCN ---
Date of Procedure: 09/29/21 Procedure(s) Performed: PREOPERATIVE DIAGNOSIS: 1- Lumbar Degenerative Disc Diseases 2-Lumbar spondylosis with Facet arthropathy without myelopathy 3-failed back surgery syndrome lumbar area POSTOPERATIVE DIAGNOSIS: Same as preop diagnosis. PROCEDURE 1. Lumbar epidural steroid injection under fluoroscopic guidance at the L3-4 level. (Fluoroscopy imaging was available in radiology department) 2. Lumbar epidurogram. ANESTHESIA: Local anesthetic with lidocaine 1% 3 mL only EBL: Minimal PROCEDURE INDICATION: The patient with low back pain and radiculitis symptoms unresponsive to conservative treatment. Fluoroscopy was used to optimize visual ization of the needle placement and to maximize safety. PROCEDURE DESCRIPTION / TECHNIQUE: The patient was seen and identified in the preoperative area. Risks, benefits, complications including but not limited to infections ,bleeding ,allergic reaction to the medications ,nerve damage and not complete pain releife , and alternatives were discussed with the patient. The patient agreed to proceed with the procedure and signed the consent. IV was started, and vital signs were stable. Patient was taken to the OR and time out was completed. The patient was placed in the prone position on procedure table and a pillow was placed under the abdomen to reduce lumbar lordosis. The lumbosacral area was prepped and draped in the usual sterile fashion.ere closely monitored during the procedure. Vital signs was monitered during the entire procedure. Using anterior-posterior fluoroscopy, the L3-4 interlaminar space was identified and the skin over this site was marked and then infiltrated with 1% lidocaine subcutaneously. Subsequently, a 20-gauge Tuohy epidural needle was inserted and advanced toward the epidural space using the ``Loss of resistance technique and guided by AP and lateral fluoroscopy. The correct needle position in the epidural space was verified with the injection of 2 mL of the water soluble contrast dye Isovue 200 contrast and observing an excellent epidurogram with the epidural spread of the dye, after negative aspiration for blood and CSF and in the absence of paresthesias. Again after negative aspiration, a 6 ml mixture containing 80 mg of Depo-medrol , and 2 ml of preservative free Normal Saline, and 2 ml of preservative free lidocaine 1% solution was injected and a washout of epidurogram was seen. Needle was withdrawn intact, skin was cleansed, and bandages were applied. COMPLICATIONS: None DISPOSITION / PLANS: The patient was placed in a supine position and transferred to the recovery area in a stable condition for observation. There was no ev idence of lower extremity motor or sensory deficit after the procedure. Patient was discharged from the recovery room after meeting discharge criteria. Home discharge instructions were given to the patient by the staff. The patient was reexamined prior to discharge. The patient will schedule a follow up in the clinic in 2-4 weeks.
[2021-09-29 13:42] VITALS: RESP 20
[2021-09-29 13:51] VITALS: BP 146/91; PULSE 53
--- NOTE | 2021-09-29 13:58 | FL ---
Fluoroscopy History: Lumbar Epid Inj 8sec fluoro time, 1 image to PACS
== END ==
LOC: ORPAIN 12:24
PROVIDERS: ATTEND Specialist
DX: M51.16 Intervertebral disc disorders with radiculopathy, lumbar region (principal); M47.26 Other spondylosis with radiculopathy, lumbar region; M96.1 Postlaminectomy syndrome, not elsewhere classified; Z79.82 Long term (current) use of aspirin; Z79.899 Other long term (current) drug therapy
CPT/HCPCS: 62323; J1040; Q9966

== ENCOUNTER → 2021-10-14 | Outpatient (CLI) | payer MEDICARE ==
[2021-10-14 12:35] VITALS: BP 130/78; PULSE 54; RESP 18; TEMP 98.7
--- NOTE | 2021-10-14 15:04 | P.PAINPG ---
PQRS Measure Charge Sheet Comment: A 66 yr old male with a history of severe and chronic low back pain secondary to lumbar degenerative disc diseases and lumbar spondylosis with facet arthropathy without myelopathy presents today for evaluation s/p DONALD L3-L4. Pt states he received % pain relief x 2 wks s/p procedure. Pain level is currently at 5 /10 in intensity, constant, localized in the mid to lower aspects of his lumbar spine, dull/ achy in character w shooting towards the buttocks and BLEs. Pain is provoked 8/10 in intensity by standing/ laying supine for periods of 30 min or more. Pain is alleviated with PT x 4 wks 3 yrs ago, chiropractic treatments monthly last in June 2021, heat, medications (Tramadol, Ibuprofen), use of a cane for ambulation, repositioning and rest. Interventional pain procedures completed include DONALD L3-L4 Patient is currently on Tramadol, Ibuprofen Patient denies any side effects of the medication(s), denies excessive drowsiness or sleepiness, denies suicidal ideation and reports that the current pain medication is helping to control the pain and improve activities of daily living. Patient denies any motor or sensory deficits. Patient denies any fever or night sweats, denies any change in the bowel movements or urination. Physical Examination: -Constitutional: Cooperative. Not in acute distress . - Neurologic: Cranial nerve II to XII intact. No focal neurological deficits. - Psychatric: Alert & oriented x 3. Matching mood & appropriate affect. Judgment and insight intact. - Musculoskeletal: Cervical spine: Muscle bulk/ tone/ strength in the bilateral upper extremities normal Vertebral body tenderness to palpation over Spurling test positive Distraction test positive Facet loading test positive Thoracic spine Muscle bulk / tone/ strength in the bilateral paraspinal muscles normal Vertebral body tender to palpation over Facet loading test positive Lumbar spine: Motor bulk/ tone/ strength lower extremities , thigh and legs : 5/5 Deep tendon reflexes : Normal Knee Jerk. Normal Ankle Jerk . Vertebral body tenderness to palpation over L3, L4 Lumbar Facet Loading Test positive Straight Leg Raise: positive at 30 degrees right side/ left side Gaenslen's Test positive Sacral spine : Severe tenderness over the Sacroiliac joint: right side / left side Range of motion: Flexion of the lumbar spine <60 degrees Range of motion: Extension of the lumbar spine <20 degrees Gaenslen's Test positive Myles's Test positive Luz Elena test: positive right side / left side Thigh Thrust Test Sacral Thrust Test Assessment and plan: Chronic low back pain secondary to lumbar degenerative disc disease , lumbar spondylosis with facet arthropathy without myelopathy Did not experience sufficient pain relief w DONALD. Pt has undergone several lumbar surgeries, hardware placement & removal and developed a lot of arthropathy which limits efficacy of ESIs. He stated he will follow up with Dr Isaacs whom recommended he see a neurologist/ neurosurgeon for additional evaluations. All patient questions answered MAPS reviewed and it was appropriate. I have spent less than 30 minutes on patient care today. Dr Munoz was available by phone for the evaluation of this patient. The time was used to review the medical records including relevant urine studies and Prescription history (MAPs), review of the available imaging, evaluation and examination of the patient, coordination of care with the medical staff and if applicable referring physicians, as well as creation of the medical record - Pain Location Bilateral Lower Back Non-Pharmacological Interventions: Chiropractic Treatment, Heat, Physical Therapy, Standing Pharmacological Interventions: Epidural, Medication, Prophylactic Medication, Topical Medication PQRS Narrative: Smoking Status Never smoker Hx Alcohol Use (MH) No Home Medications: Ambulatory Orders Aspirin [Adult Low Dose Aspirin EC] 81 mg PO DAILY 04/16/16 Baclofen [Lioresal] 20 mg PO HS PRN 04/16/16 Cranberry + Vitamin C 1 cap PO DAILY 04/16/16 Dicyclomine [Bentyl] 10 mg PO BID PRN 04/16/16 Simvastatin 20 mg PO HS 04/16/16 Vit A/Vit C/Vit E/Zinc/Copper [ICAPS SOFTGEL] 1 cap PO DAILY 04/16/16 traMADol HCL [Ultram] 50 mg PO Q6HR PRN 04/16/16 Biotin 5,000 mcg PO DAILY 05/23/17 Ibuprofen 800 mg PO Q8H PRN 09/12/18 Ascorbic Acid [Vitamin C] 1,000 mg PO DAILY 09/25/21 Cholecalciferol [Vitamin D3 (125 Mcg = 5000 Iu)] 150 mcg PO DAILY 09/25/21 Magnesium Oxide [Magnesium] 500 mg PO DAILY 09/25/21 Turmeric Root Extract [Turmeric] 450 mg PO DAILY 09/25/21 Vitamin B Complex 1 each PO DAILY 09/25/21 Zinc 50 mg PO DAILY 09/25/21 amLODIPine [Norvasc] 10 mg PO DAILY 09/25/21 lisinopriL [Zestril] 40 mg PO DAILY 09/25/21 Controlled Substance Measures - Controlled Substance Measures Is patient prescribed a controlled substance at discharge?: No
== END ==
LOC: PNWHC3 12:00
PROVIDERS: ATTEND Specialist
DX: M47.816 Spondylosis without myelopathy or radiculopathy, lumbar region (principal); M51.36 Other intervertebral disc degeneration, lumbar region; G89.29 Other chronic pain
CPT/HCPCS: 99211

== ENCOUNTER 2021-11-13 07:41 | Observation (INO) | payer MEDICARE ==
[2021-11-13] MEDS ORDERED: SODIUM CHLORIDE 0.9% 500 ML 500 ML IV STA (08:03)
[2021-11-13] MEDS ORDERED: ONDANSETRON 4 MG/2 ML VIAL IVP STA (08:03)
[2021-11-13] MEDS ORDERED: HYDROmorphone 0.5 MG/0.5 ML SYRINGE IVP STA (08:03)
--- NOTE | 2021-11-13 08:12 | ED ---
General Adult HPI - General Chief complaint: Abdominal Pain Stated complaint: UTI Time Seen by Provider: 11/13/21 07:49 Source: patient, family, RN notes reviewed, old records reviewed Mode of arrival: ambulatory Limitations: no limitations - History of Present Illness Initial comments: 66-year-old male, alert and oriented, presents with family complaining of UTI diagnosed by Dr. Bradley yesterday. He was placed on Bactrim however today he awoke with bilateral testicular pain and scrotal swelling along with low back pain. States feels pain in his rectum. He did have a fever at home and took Ultram and Motrin prior to arrival. 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 -: days(s) (2) Location: genitals (Testicles) Severity scale (1-10): 8 Quality: constant Consistency: constant Improves with: none Worsens with: other (Palpation) Associated Symptoms: fever/chills Treatments Prior to Arrival: other (Bactrim prescribed by urologist yesterday; ultram and motrin) - Related Data Home Medications Medication Instructions Recorded Confirmed Aspirin [Adult Low Dose Aspirin EC] 81 mg PO DAILY 04/16/16 11/13/21 Baclofen [Lioresal] 20 mg PO HS PRN 04/16/16 11/13/21 Dicyclomine [Bentyl] 10 mg PO BID PRN 04/16/16 11/13/21 Simvastatin 20 mg PO HS 04/16/16 11/13/21 Vit A/Vit C/Vit E/Zinc/Copper 1 cap PO DAILY 04/16/16 11/13/21 [ICAPS SOFTGEL] traMADol HCL [Ultram] 50 mg PO TID PRN 04/16/16 11/13/21 Biotin 5,000 mcg PO DAILY 05/23/17 11/13/21 Ibuprofen 800 mg PO Q8H PRN 09/12/18 11/13/21 Ascorbic Acid [Vitamin C] 1,000 mg PO DAILY 09/25/21 11/13/21 Cholecalciferol [Vitamin D3 (125 125 mcg PO DAILY 09/25/21 11/13/21 Mcg = 5000 Iu)] Magnesium Oxide [Magnesium] 500 mg PO DAILY 09/25/21 11/13/21 Turmeric Root Extract [Turmeric] 500 mg PO DAILY 09/25/21 11/13/21 Zinc 50 mg PO DAILY 09/25/21 11/13/21 lisinopriL [Zestril] 40 mg PO DAILY 09/25/21 11/13/21 Cranberry Fruit Extract [Cranberry] 3,000 mg PO DAILY 11/13/21 11/13/21 Cyanocobalamin (Vitamin B-12) 5,000 mcg PO DAILY 11/13/21 11/13/21 [Vitamin B-12] Fish Oil/Dha/Epa [Fish Oil 1,200 1 cap PO DAILY 11/13/21 11/13/21 mg Fish Oil] Quercetin 1 cap PO DAILY 11/13/21 11/13/21 Sulfamethoxazole/Trimethoprim 1 tab PO BID 11/13/21 11/13/21 [Bactrim DS 800-160 mg] amLODIPine [Norvasc] 5 mg PO DAILY 11/13/21 11/13/21 Allergies Allergy/AdvReac Type Severity Reaction Status Date / Time No Known Allergies Allergy Verified 11/13/21 07:48 Review of Systems ROS Statement: Those systems with pertinent positive or pertinent negative responses have been documented in the HPI. ROS Other: All systems not noted in ROS Statement are negative. 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 has beginnings of cataracts and glaucoma, bulging cervical disc History of Any Multi-Drug Resistant Organisms: None Reported Past Surgical History: Back Surgery, Hernia Repair, Joint Replacement, Orthopedic Surgery Additional Past Surgical History / Comment(s): colonoscopy, rt rotator cuff repair, orif lt wrist, both knees replaced, rt knee scope, multiple back surgeries, pain injections, ant tlh 05/31/17 Past Anesthesia/Blood Transfusion Reactions: No Reported Reaction Past Psychological History: No Psychological Hx Reported Smoking Status: Never smoker Past Alcohol Use History: None Reported Past Drug Use History: None Reported - Past Family History Father Additional Family Medical History / Comment(s): black lung disease Mother Family Medical History: Pneumonia General Exam Limitations: no limitations General appearance: alert, in no apparent distress Head exam: Present: atraumatic Eye exam: Absent: scleral icterus, conjunctival injection, periorbital swelling ENT exam: Present: mucous membranes moist Neck exam: Absent: meningismus Respiratory exam: Present: normal lung sounds bilaterally. Absent: respiratory distress, wheezes, rales, rhonchi, stridor, chest wall tenderness, accessory muscle use Cardiovascular Exam: Present: regular rate GI/Abdominal exam: Present: soft, tenderness (right groin and suprapubic pain). Absent: distended, guarding, rebound, rigid exam: Present: testicular tenderness (Bilateral), scrotal swelling, vertical testicular lie. Absent: urethral discharge External exam: Absent: lesions, lacerations Extremities exam: Present: normal capillary refill. Absent: pedal edema Back exam: Present: tenderness (LS spine). Absent: CVA tenderness (R), CVA tenderness (L), rash noted Neurological exam: Present: alert, oriented X3 Psychiatric exam: Present: normal affect, normal mood Skin exam: Present: warm, normal color. Absent: cyanosis, petechiae, pallor Course Vital Signs 11/13/21 11/13/21 11/13/21 07:46 07:55 08:49 Temperature 98.3 F 97.8 F 98.0 F Pulse Rate 85 76 70 Respiratory 20 18 16 Rate Blood Pressure 159/68 139/105 124/74 O2 Sat by Pulse 99 100 100 Oximetry 11/13/21 11/13/21 10:08 12:45 Temperature 98.2 F Pulse Rate 68 61 Respiratory 16 18 Rate Blood Pressure 108/61 104/72 O2 Sat by Pulse 98 96 Oximetry Medical Decision Making - Medical Decision Making Ultrasound of the scrotum shows concern for epididymoorchitis of the right testicle and epididymis. Complex fluid collection noted on the right as well. No evidence of torsion, good bilateral color flow and waveforms seen. Hydrocele measuring [address] shows a hyperdense right testicle versus left testicle suggesting right-sided epididymitis orchitis. Urinalysis shows 10 white blood cells, no nitrites or bacteria noted. There is a marked leukocytosis of 22.3. Lactic acid 2.2 patient was given IV fluids and IV antibiotics. Case discussed with Dr. Stubbs. Patient will be admitted to Dr. Bradley with IV antibiotics. Vital signs are stable. - Lab Data Result diagrams: 11/13/21 08:19 11/13/21 08:19 Lab Results 11/13/21 11/13/21 11/13/21 Range/Units 08:19 08:19 08:19 WBC 22.3 H (3.8-10.6) k/uL RBC 4.62 (4.30-5.90) m/uL Hgb 13.9 (13.0-17.5) gm/dL Hct 41.0 (39.0-53.0) % MCV 88.7 (80.0-100.0) fL MCH 30.1 (25.0-35.0) pg MCHC 34.0 (31.0-37.0) g/dL RDW 13.8 (11.5-15.5) % Plt Count 181 (150-450) k/uL MPV 8.5 Neutrophils % 88 % Lymphocytes % 5 % Monocytes % 5 % Eosinophils % 1 % Basophils % 0 % Neutrophils # 19.7 H (1.3-7.7) k/uL Lymphocytes # 1.0 (1.0-4.8) k/uL Monocytes # 1.1 H (0-1.0) k/uL Eosinophils # 0.3 (0-0.7) k/uL Basophils # 0.1 (0-0.2) k/uL Sodium 135 L (137-145) mmol/L Potassium 4.0 (3.5-5.1) mmol/L Chloride 102 (98-107) mmol/L Carbon Dioxide 22 (22-30) mmol/L Anion Gap 11 mmol/L BUN 17 (9-20) mg/dL Creatinine 1.07 (0.66-1.25) mg/dL Est GFR (CKD-EPI)AfAm 85 (>60 ml/min/1.73 sqM) Est GFR (CKD-EPI)NonAf 73 (>60 ml/min/1.73 sqM) Glucose 140 H (74-99) mg/dL Lactic Ac Sepsis Rflx Plasma Lactic Acid Quinn 2.2 H* (0.7-2.0) mmol/L Calcium 8.3 L (8.4-10.2) mg/dL Total Bilirubin 1.0 (0.2-1.3) mg/dL AST 25 (17-59) U/L ALT 20 (4-49) U/L Alkaline Phosphatase 71 (38-126) U/L Total Protein 6.4 (6.3-8.2) g/dL Albumin 3.7 (3.5-5.0) g/dL Urine Color Urine Appearance (Clear) Urine pH (5.0-8.0) Ur Specific [place] (1.001-1.035) Urine Protein (Negative) Urine Glucose (UA) (Negative) Urine Ketones (Negative) Urine Blood (Negative) Urine Nitrite (Negative) Urine Bilirubin (Negative) Urine Urobilinogen (<2.0) mg/dL Ur Leukocyte Esterase (Negative) Urine RBC (0-5) /hpf Urine WBC (0-5) /hpf Ur Squamous Epith Cells (0-4) /hpf Urine Mucus (None) /hpf 11/13/21 11/13/21 Range/Units 08:59 09:39 WBC (3.8-10.6) k/uL RBC (4.30-5.90) m/uL Hgb (13.0-17.5) gm/dL Hct (39.0-53.0) % MCV (80.0-100.0) fL MCH (25.0-35.0) pg MCHC (31.0-37.0) g/dL RDW (11.5-15.5) % Plt Count (150-450) k/uL MPV Neutrophils % % Lymphocytes % % Monocytes % % Eosinophils % % Basophils % % Neutrophils # (1.3-7.7) k/uL Lymphocytes # (1.0-4.8) k/uL Monocytes # (0-1.0) k/uL Eosinophils # (0-0.7) k/uL Basophils # (0-0.2) k/uL Sodium (137-145) mmol/L Potassium (3.5-5.1) mmol/L Chloride (98-107) mmol/L Carbon Dioxide (22-30) mmol/L Anion Gap mmol/L BUN (9-20) mg/dL Creatinine (0.66-1.25) mg/dL Est GFR (CKD-EPI)AfAm (>60 ml/min/1.73 sqM) Est GFR (CKD-EPI)NonAf (>60 ml/min/1.73 sqM) Glucose (74-99) mg/dL Lactic Ac Sepsis Rflx Y Plasma Lactic Acid Quinn (0.7-2.0) mmol/L Calcium (8.4-10.2) mg/dL Total Bilirubin (0.2-1.3) mg/dL AST (17-59) U/L ALT (4-49) U/L Alkaline Phosphatase (38-126) U/L Total Protein (6.3-8.2) g/dL Albumin (3.5-5.0) g/dL Urine Color Yellow Urine Appearance Clear (Clear) Urine pH 6.5 (5.0-8.0) Ur Specific [place] 1.032 (1.001-1.035) Urine Protein 1+ H (Negative) Urine Glucose (UA) Negative (Negative) Urine Ketones Negative (Negative) Urine Blood Negative (Negative) Urine Nitrite Negative (Negative) Urine Bilirubin Negative (Negative) Urine Urobilinogen <2.0 (<2.0) mg/dL Ur Leukocyte Esterase Moderate H (Negative) Urine RBC 3 (0-5) /hpf Urine WBC 10 H (0-5) /hpf Ur Squamous Epith Cells <1 (0-4) /hpf Urine Mucus Occasional H (None) /hpf Disposition Clinical Impression: Epididymo-orchitis Disposition: ADMITTED IP TO THIS HOSP Decision Date: 11/13/21
[2021-11-13 08:27] LABS: Basophils # (A) 0.1 k/uL (0-0.2); Basophils % (A) 0 %; Eosinophils # (A) 0.3 k/uL (0-0.7); Eosinophils % (A) 1 %; HGB 13.9 gm/dL (13.0-17.5); Lymphocytes % (A) 5 %; MCH 30.1 pg (25.0-35.0); MCV 88.7 fL (80.0-100.0); Mean Platelet Volume 8.5; Monocytes # (A) 1.1 k/uL (0-1.0); Monocytes % (A) 5 %; Neutrophils # (A) 19.7 k/uL (1.3-7.7); Neutrophils % (A) 88 %; Platelet Count 181 k/uL (150-450); RBC 4.62 m/uL (4.30-5.90); RDW 13.8 % (11.5-15.5); WBC 22.3 k/uL (3.8-10.6)
[2021-11-13 08:52] LABS: Albumin 3.7 g/dL (3.5-5.0); Calcium 8.3 mg/dL (8.4-10.2); Total Protein 6.4 g/dL (6.3-8.2)
[2021-11-13] MEDS ORDERED: SODIUM CHLORIDE 0.9% 500 ML 500 ML IV ONE (09:07)
--- NOTE | 2021-11-13 09:08 | US ---
EXAMINATION TYPE: US scrotum with doppler. Grayscale and color Doppler Duplex imaging performed of temitope heller scrotum. DATE OF EXAM: 11/13/2021 COMPARISON: NONE CLINICAL HISTORY: pain swelling. pain and edema bilateral testes for 2 days EXAM MEASUREMENTS: TESTICLES: Right Testicle: 5.2 x 3.6 x 3.7 cm Left Testicle: 4.6 x 3.0 x 3.9 cm EPIDIDYMIS HEAD: Right Epididymis: 2.2 cm Doppler performed to assess for testicular vascularity; good bilateral color flow and waveforms are s een. There is no evidence of testicular torsion. Presence of hydroceles: complex fluid collection medial to right testicle = 6.0cm Presence of varicoceles: no *increased vascularity right testicle *large cluster of cystic areas left epididymis area = 8.7 x 7.0 x 7.1cm IMPRESSION: 1. Correlate for epididymoorchitis of the right testicle and epididymis. Complex fluid collection not ed on the right as well. Clinical correlation and appropriate follow-up advised.
--- NOTE | 2021-11-13 09:45 | CT ---
EXAMINATION TYPE: CT abdomen pelvis w con DATE OF EXAM: 11/13/2021 COMPARISON: Same day scrotal ultrasound HISTORY: testicular, rectal pain and RLQ pain, swollen testicles CT DLP: 2012.4 mGycm, Automated Exposure Control for Dose Reduction was Utilized. CONTRAST: CT scan of the abdomen and pelvis is performed without oral but with IV Contrast, patient injected wi th 100ml mL of Isovue 300. FINDINGS: LUNG BASES: No significant abnormality is appreciated. LIVER/GB: Gallbladder has distended margins without surrounding fluid or fat stranding. No biliary di latation noted. PANCREAS: No significant abnormality is seen. SPLEEN: Scattered small calcifications throughout the spleen consistent with product of old granuloma tous disease. Small splenule in the splenic hilum axial image 24. ADRENALS: No significant abnormality is seen. KIDNEYS: Symmetric cortical medullary uptake and excretion without hydronephrosis seen bilaterally. BOWEL: No significant abnormality is seen. PROSTATE/SEMINAL VESICLES: No gross abnormality seen. LYMPH NODES: No greater than 1cm abdominal or pelvic lymph nodes are appreciated. OSSEOUS STRUCTURES: Metallic artifact from left hip arthroplasty causes streak artifact somewhat limi ting evaluation of pelvic structures. Postsurgical change posterior thoracolumbar junction with peak kyphosis at this level. Moderate disc space narrowing thoracolumbar junction with severe anterior spu rring and bridging osteophytes. Moderate to severe disc space narrowing with vacuum disc phenomenon L 3-L4 level. Posterior spur disc complex effaces the anterior thecal sac at this level. Posterior bony projection at L1 level effaces the anterior thecal sac. Prominent multilevel facet arthropathy in th e mid to lower lumbar spine is present. OTHER: Small to moderate-sized fat-containing umbilical hernia. Mild to moderate calcified plaque of the aorta extends into branch vessels. Corresponding to ultrasound there is asymmetric enlarged septated left-sided scrotal fluid collection . Corresponding ultrasound there is more hyperdense right testicle and more prominent adjacent superi or vessels. IMPRESSION: There is asymmetric hyperdense right testicle versus left testicle with prominent right s ided superior vessels. CT findings support the ultrasound suggestion or diagnosis of right-sided epid idymitis/orchitis if this is the site of patient pain. Correlate clinically.
[2021-11-13 10:03] LABS: Appearance,Urine Clear (Clear); Bilirubin,Urine Negative (Negative); Blood,Urine Negative (Negative); Color,Urine Yellow; Glucose,Urine (UA) Negative (Negative); Ketones,Urine Negative (Negative); Leukocyte Esterase,Urine Moderate (Negative); Mucus,Urine Occasional /hpf; Nitrite,Urine Negative (Negative); PH, Urine 6.5 (5.0-8.0); Protein,Urine 1+ (Negative); RBC,Urine 3 /hpf (0-5); Specific Gravity,Urine 1.032 (1.001-1.035); Squamous Epithelial Cell,Urine <1 /hpf (0-4); Urobilinogen,Urine <2.0 mg/dL (<2.0); WBC,Urine 10 /hpf (0-5)
[2021-11-13] MEDS: SODIUM CHLORIDE 0.9% 1,000 ML IV SCH ×2 (10:10→23:16)
[2021-11-13] MEDS ORDERED: NALOXONE 0.4 MG/ML 1 ML VIAL IV PRN (10:24)
[2021-11-13] MEDS ORDERED: ACETAMINOPHEN TAB 325 MG TAB PO PRN (10:24)
[2021-11-13] MEDS ORDERED: GENTAMICIN PER PHARMACY MISCELLANE SCH (10:30)
[2021-11-13] MEDS ORDERED: AMPICILLIN-SULBACTAM 3 GM in SODIUM CHLORIDE 0.9% 100 ML IVPB STA (10:34)
[2021-11-13] MEDS: GENTAMICIN 400 MG in SODIUM CHLORIDE 0.9% 100 ML IVPB SCH (12:45)
[2021-11-13] MEDS: AMPICILLIN-SULBACTAM 3 GM in SODIUM CHLORIDE 0.9% 100 ML IVPB SCH ×2 (16:25→23:16)
[2021-11-13] MEDS: HYDROmorphone 0.5 MG/0.5 ML SYRINGE IVP PRN (20:22)
[2021-11-13] MEDS ORDERED: GENTAMICIN TROUGH DUE 1 EACH MISC MISCELLANE ONE (21:00)
[2021-11-14 04:36] LABS: African American GFR (CKD) 80 (>60 ml/min/1.73 sqM); Anion Gap 7 mmol/L; Blood Urea Nitrogen 16 mg/dL (9-20); Calcium 7.9 mg/dL (8.4-10.2); Carbon Dioxide 24 mmol/L (22-30); Chloride 104 mmol/L (98-107); Glucose 97 mg/dL (74-99); Non-African American GFR(CKD) 69 (>60 ml/min/1.73 sqM); Potassium 4.4 mmol/L (3.5-5.1); Sodium 135 mmol/L (137-145)
[2021-11-14] MEDS: AMPICILLIN-SULBACTAM 3 GM in SODIUM CHLORIDE 0.9% 100 ML IVPB SCH ×4 (05:31→23:52)
--- NOTE | 2021-11-14 05:42 | P.GSHP ---
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 He has been on cic for years. He came to the office yesterday for symptoms of a uti. Hi urine looked infected and was cultured. He was started on Bactrim ds pending the c&s. He presesnted today witha c/o a swollen scrotum He hasan enlarged right manuel scrotum with epididymitis with a reactive hydrocele. His wbc was 22k His urine is clear. Because of the physical findings and the elevated wbc he will be placed in the hospital for iv ab and ivf. - Constitutional Constitutional: Denies chills, Denies fever - EENT Eyes: denies blurred vision, denies pain Ears, nose, mouth and throat: Denies headache, Denies sore throat - Cardiovascular Cardiovascular: Denies chest pain, Denies shortness of breath - Respiratory Respiratory: Denies cough, Denies 7 - Gastrointestinal Gastrointestinal: Denies abdominal pain, Denies diarrhea, Denies nausea, Denies vomiting - Genitourinary (Female) Genitourinary: Denies dysuria, Denies hematuria - Genitourinary (Male) Genitourinary: Denies dysuria, Denies hematuria - Musculoskeletal Musculoskeletal: Denies myalgias - Integumentary Integumentary: Denies pruritus, Denies rash - Neurological Neurological: Denies numbness, Denies weakness - Psychiatric Psychiatric: Denies anxiety, Denies depression - Endocrine Endocrine: Denies fatigue, Denies weight change 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 has beginnings of cataracts and glaucoma, bulging ce rvical disc History of Any Multi-Drug Resistant Organisms: None Reported Past Surgical History: Back Surgery, Hernia Repair, Joint Replacement, Orthop edic Surgery Additional Past Surgical History / Comment(s): colonoscopy, rt rotator cuff repair, orif lt wrist, both knees replaced, rt knee scope, multiple back surgeries, pain injections, ant tlh 05/31/17 Past Anesthesia/Blood Transfusion Reactions: No Reported Reaction Past Psychological History: No Psychological Hx Reported Smoking Status: Never smoker Past Alcohol Use History: None Reported Past Drug Use History: None Reported - Past Family History Father Additional Family Medical History / Comment(s): black lung disease Mother Family Medical History: Pneumonia Medications and Allergies Home Medications Medication Instructions Recorded Confirmed Type Aspirin [Adult Low Dose Aspirin EC] 81 mg PO DAILY 04/16/16 11/13/21 History Baclofen [Lioresal] 20 mg PO HS PRN 04/16/16 11/13/21 History Dicyclomine [Bentyl] 10 mg PO BID PRN 04/16/16 11/13/21 History Simvastatin 20 mg PO HS 04/16/16 11/13/21 History Vit A/Vit C/Vit E/Zinc/Copper 1 cap PO DAILY 04/16/16 11/13/21 History [ICAPS SOFTGEL] traMADol HCL [Ultram] 50 mg PO TID PRN 04/16/16 11/13/21 History Biotin 5,000 mcg PO DAILY 05/23/17 11/13/21 History Ibuprofen 800 mg PO Q8H PRN 09/12/18 11/13/21 History Ascorbic Acid [Vitamin C] 1,000 mg PO DAILY 09/25/21 11/13/21 History Cholecalciferol [Vitamin D3 (125 125 mcg PO DAILY 09/25/21 11/13/21 History Mcg = 5000 Iu)] Magnesium Oxide [Magnesium] 500 mg PO DAILY 09/25/21 11/13/21 History Turmeric Root Extract [Turmeric] 500 mg PO DAILY 09/25/21 11/13/21 History Zinc 50 mg PO DAILY 09/25/21 11/13/21 History lisinopriL [Zestril] 40 mg PO DAILY 09/25/21 11/13/21 History Cranberry Fruit Extract [Cranberry] 3,000 mg PO DAILY 11/13/21 11/13/21 History Cyanocobalamin (Vitamin B-12) 5,000 mcg PO DAILY 11/13/21 11/13/21 History [Vitamin B-12] Fish Oil/Dha/Epa [Fish Oil 1,200 1 cap PO DAILY 11/13/21 11/13/21 History mg Fish Oil] Quercetin 1 cap PO DAILY 11/13/21 11/13/21 History Sulfamethoxazole/Trimethoprim 1 tab PO BID 11/13/21 11/13/21 History [Bactrim DS 800-160 mg] amLODIPine [Norvasc] 5 mg PO DAILY 11/13/21 11/13/21 History Allergies Allergy/AdvReac Type Severity Reaction Status Date / Time No Known Allergies Allergy Verified 11/13/21 07:48 Surgical - Exam Vital Signs Temp Pulse Resp BP Pulse Ox 98.3 F 85 20 159/68 99 11/13/21 07:46 11/13/21 07:46 11/13/21 07:46 11/13/21 07:46 11/13/21 07:46 - General well developed, well nourished, no distress - ENT no hearing loss - Neck trachea midline - Respiratory normal expansion, normal respiratory effort - Cardiovascular Rhythm: regular - Abdomen Abdomen: soft, non tender - Genitourinary The penis is normal. He has a tender erythematous right hemiscrotum. There is no obvious abscess at this point in time. - Integumentary no growths - Neurologic normal coordination, normal sensation - Musculoskeletal normal posture - Psychiatric oriented to time, oriented to person, oriented to place, speech is normal, memory intact Results - Labs 11/13/21 08:19 11/14/21 02:59 Abnormal Lab Results - Last 24 Hours (Table) 11/13/21 11/13/21 11/13/21 Range/Units 08:19 08:19 08:19 WBC 22.3 H (3.8-10.6) k/uL Neutrophils # 19.7 H (1.3-7.7) k/uL Monocytes # 1.1 H (0-1.0) k/uL Sodium 135 L (137-145) mmol/L Glucose 140 H (74-99) mg/dL Plasma Lactic Acid Quinn 2.2 H* (0.7-2.0) mmol/L Calcium 8.3 L (8.4-10.2) mg/dL Urine Protein (Negative) Ur Leukocyte Esterase (Negative) Urine WBC (0-5) /hpf Urine Mucus (None) /hpf 11/13/21 Range/Units 09:39 WBC (3.8-10.6) k/uL Neutrophils # (1.3-7.7) k/uL Monocytes # (0-1.0) k/uL Sodium (137-145) mmol/L Glucose (74-99) mg/dL Plasma Lactic Acid Quinn (0.7-2.0) mmol/L Calcium (8.4-10.2) mg/dL Urine Protein 1+ H (Negative) Ur Leukocyte Esterase Moderate H (Negative) Urine WBC 10 H (0-5) /hpf Urine Mucus Occasional H (None) /hpf Diabetes panel 11/13/21 Range/Units 08:19 Sodium 135 L (137-145) mmol/L Potassium 4.0 (3.5-5.1) mmol/L Chloride 102 (98-107) mmol/L Carbon Dioxide 22 (22-30) mmol/L BUN 17 (9-20) mg/dL Creatinine 1.07 (0.66-1.25) mg/dL Glucose 140 H (74-99) mg/dL Calcium 8.3 L (8.4-10.2) mg/dL AST 25 (17-59) U/L ALT 20 (4-49) U/L Alkaline Phosphatase 71 (38-126) U/L Total Protein 6.4 (6.3-8.2) g/dL Albumin 3.7 (3.5-5.0) g/dL Calcium panel 11/13/21 Range/Units 08:19 Calcium 8.3 L (8.4-10.2) mg/dL Albumin 3.7 (3.5-5.0) g/dL Pituitary panel 11/13/21 Range/Units 08:19 Sodium 135 L (137-145) mmol/L Potassium 4.0 (3.5-5.1) mmol/L Chloride 102 (98-107) mmol/L Carbon Dioxide 22 (22-30) mmol/L BUN 17 (9-20) mg/dL Creatinine 1.07 (0.66-1.25) mg/dL Glucose 140 H (74-99) mg/dL Calcium 8.3 L (8.4-10.2) mg/dL Adrenal panel 11/13/21 Range/Units 08:19 Sodium 135 L (137-145) mmol/L Potassium 4.0 (3.5-5.1) mmol/L Chloride 102 (98-107) mmol/L Carbon Dioxide 22 (22-30) mmol/L BUN 17 (9-20) mg/dL Creatinine 1.07 (0.66-1.25) mg/dL Glucose 140 H (74-99) mg/dL Calcium 8.3 L (8.4-10.2) mg/dL Total Bilirubin 1.0 (0.2-1.3) mg/dL AST 25 (17-59) U/L ALT 20 (4-49) U/L Alkaline Phosphatase 71 (38-126) U/L Total Protein 6.4 (6.3-8.2) g/dL Albumin 3.7 (3.5-5.0) g/dL - Imaging US - kidney/bladder: report reviewed Assessment and Plan Assessment: Impression: right epididimorchitis with hydrocele.ngb Plan: iv ab, monitor testis for abcess formation
--- NOTE | 2021-11-14 06:22 | P.PN ---
Subjective Progress Note Date: 11/14/21 The patient is in the hospital the right epididymal orchitis. He has a neurogenic bladder and is on intermittent catheterization. He came to the emergency room with increasing scrotal pain. He had a clinical epididymal orchitis. His white count was 22,000. Elected to place him in the hospital for this reason. He is placed on gentamicin and ampicillin. His temperature is low-grade at 99 7. The examination today shows some scrotal edema but no obvious abscess. The pain is less. The erythema is less. The culture is negative from my office from 48 hours ago. I will observe him another 24 hours and then discharge home as long as abscess formation has not occurred. Objective - Vital Signs Vital signs: Vital Signs Temp 99.7 F H 11/14/21 03:33 Pulse 66 11/14/21 03:33 Resp 17 11/14/21 03:33 BP 116/69 11/14/21 03:33 Pulse Ox 97 11/14/21 03:33 FiO2 Intake & Output 11/13/21 11/13/21 11/14/21 06:59 18:59 06:59 Weight 96.162 kg Other: # Voids 2 - Labs CBC & Chem 7: 11/13/21 08:19 11/14/21 02:59 Labs: Abnormal Lab Results - Last 24 Hours (Table) 11/13/21 11/13/21 11/13/21 Range/Units 08:19 08:19 08:19 WBC 22.3 H (3.8-10.6) k/uL Neutrophils # 19.7 H (1.3-7.7) k/uL Monocytes # 1.1 H (0-1.0) k/uL Sodium 135 L (137-145) mmol/L Glucose 140 H (74-99) mg/dL Plasma Lactic Acid Quinn 2.2 H* (0.7-2.0) mmol/L Calcium 8.3 L (8.4-10.2) mg/dL Urine Protein (Negative) Ur Leukocyte Esterase (Negative) Urine WBC (0-5) /hpf Urine Mucus (None) /hpf 11/13/21 11/14/21 Range/Units 09:39 02:59 WBC (3.8-10.6) k/uL Neutrophils # (1.3-7.7) k/uL Monocytes # (0-1.0) k/uL Sodium 135 L (137-145) mmol/L Glucose (74-99) mg/dL Plasma Lactic Acid [place] (0.7-2.0) mmol/L Calcium 7.9 L (8.4-10.2) mg/dL Urine Protein 1+ H (Negative) Ur Leukocyte Esterase Moderate H (Negative) Urine WBC 10 H (0-5) /hpf Urine Mucus Occasional H (None) /hpf
[2021-11-14] MEDS: HYDROmorphone 0.5 MG/0.5 ML SYRINGE IVP PRN (07:50)
[2021-11-14] MEDS: SODIUM CHLORIDE 0.9% 1,000 ML IV SCH (11:07)
[2021-11-14 11:51] LABS: HCT 37.8 % (39.6-50.0); HGB 12.5 g/dL (13.0-17.0); MCHC 33.1 g/dL (32.0-37.0); MCV 93.8 fL (80.0-97.0); Mean Platelet Volume 11.8 fL (9.5-12.2); NRBC Per 100 WBC 0 /100 WBCS (0.0-0.0); Platelet Count 147 X 10*3/uL (140-440); RBC 4.03 X 10*6/uL (4.40-5.60); RDW 14.6 % (11.5-14.5); WBC 14.52 X 10*3/uL (4.50-10.00)
[2021-11-14] MEDS: GENTAMICIN 400 MG in SODIUM CHLORIDE 0.9% 100 ML IVPB SCH (12:57)
[2021-11-14] MEDS ORDERED: BUTALB/APAP/CAFF 50-325-40MG TAB PO PRN (13:29)
[2021-11-15] MEDS: SODIUM CHLORIDE 0.9% 1,000 ML IV SCH (04:42)
[2021-11-15] MEDS: AMPICILLIN-SULBACTAM 3 GM in SODIUM CHLORIDE 0.9% 100 ML IVPB SCH ×2 (05:20→11:08)
[2021-11-15 06:58] LABS: African American GFR (CKD) >90 (>60 ml/min/1.73 sqM); Anion Gap 6 mmol/L; Blood Urea Nitrogen 11 mg/dL (9-20); Carbon Dioxide 28 mmol/L (22-30); Chloride 106 mmol/L (98-107); Glucose 89 mg/dL (74-99); Non-African American GFR(CKD) 83 (>60 ml/min/1.73 sqM); Potassium 3.9 mmol/L (3.5-5.1); Sodium 140 mmol/L (137-145)
[2021-11-15 08:17] VITALS: BP 150/84; PULSE 65; RESP 16; TEMP 98.2
--- NOTE | 2021-11-15 10:56 | P.DS ---
Providers Date of admission: 11/13/21 09:56 Attending physician: Malachi Bradley Primary care physician: [facility] Hospital Course: The patient was admitted with an epididymal orchitis on the right. He has a known neurogenic bladder and is on intermittent catheterization. His culture is negative but he had an elevated white count and a urine consistent with an infection. He is placed on ampicillin and gentamicin and the swelling has diminished significantly. No abscess formation was identified. The white count was 14,000 yesterday from 22,000 the day before. He is ready for discharge home. We given a prescription for Levaquin. I'll follow-up in the office in one week. He'll resume his CIC. Post hospitalization instructions have been given. Patient Condition at Discharge: Good Plan - Discharge Summary Discharge Rx Participant: No New Discharge Prescriptions: New Levofloxacin [Levaquin] 500 mg PO DAILY 1 Days #10 tab No Action Dicyclomine [Bentyl] 10 mg PO BID PRN PRN Reason: IBS Baclofen [Lioresal] 20 mg PO HS PRN PRN Reason: Muscle Spasm traMADol HCL [Ultram] 50 mg PO TID PRN PRN Reason: Pain Vit A/Vit C/Vit E/Zinc/Copper [ICAPS SOFTGEL] 1 cap PO DAILY Simvastatin 20 mg PO HS Aspirin [Adult Low Dose Aspirin EC] 81 mg PO DAILY Biotin 5,000 mcg PO DAILY Ibuprofen 800 mg PO Q8H PRN PRN Reason: Pain Sulfamethoxazole/Trimethoprim [Bactrim DS 800-160 mg] 1 tab PO BID Fish Oil/Dha/Epa [Fish Oil 1,200 mg Fish Oil] 1 cap PO DAILY lisinopriL [Zestril] 40 mg PO DAILY Cholecalciferol [Vitamin D3 (125 Mcg = 5000 Iu)] 125 mcg PO DAILY Zinc 50 mg PO DAILY Ascorbic Acid [Vitamin C] 1,000 mg PO DAILY Turmeric Root Extract [Turmeric] 500 mg PO DAILY Magnesium Oxide [Magnesium] 500 mg PO DAILY Quercetin 1 cap PO DAILY Cyanocobalamin (Vitamin B-12) [Vitamin B-12] 5,000 mcg PO DAILY Cranberry Fruit Extract [Cranberry] 3,000 mg PO DAILY amLODIPine [Norvasc] 5 mg PO DAILY Discharge Medication List Aspirin [Adult Low Dose Aspirin EC] 81 mg PO DAILY 04/16/16 [History] Baclofen [Lioresal] 20 mg PO HS PRN 04/16/16 [History] Dicyclomine [Bentyl] 10 mg PO BID PRN 04/16/16 [History] Simvastatin 20 mg PO HS 04/16/16 [History] Vit A/Vit C/Vit E/Zinc/Copper [ICAPS SOFTGEL] 1 cap PO DAILY 04/16/16 [History] traMADol HCL [Ultram] 50 mg PO TID PRN 04/16/16 [History] Biotin 5,000 mcg PO DAILY 05/23/17 [History] Ibuprofen 800 mg PO Q8H PRN 09/12/18 [History] Ascorbic Acid [Vitamin C] 1,000 mg PO DAILY 09/25/21 [History] Cholecalciferol [Vitamin D3 (125 Mcg = 5000 Iu)] 125 mcg PO DAILY 09/25/21 [History] Magnesium Oxide [Magnesium] 500 mg PO DAILY 09/25/21 [History] Turmeric Root Extract [Turmeric] 500 mg PO DAILY 09/25/21 [History] Zinc 50 mg PO DAILY 09/25/21 [History] lisinopriL [Zestril] 40 mg PO DAILY 09/25/21 [History] Cranberry Fruit Extract [Cranberry] 3,000 mg PO DAILY 11/13/21 [History] Cyanocobalamin (Vitamin B-12) [Vitamin B-12] 5,000 mcg PO DAILY 11/13/21 [History] Fish Oil/Dha/Epa [Fish Oil 1,200 mg Fish Oil] 1 cap PO DAILY 11/13/21 [History] Quercetin 1 cap PO DAILY 11/13/21 [History] Sulfamethoxazole/Trimethoprim [Bactrim DS 800-160 mg] 1 tab PO BID 11/13/21 [History] amLODIPine [Norvasc] 5 mg PO DAILY 11/13/21 [History] Levofloxacin [Levaquin] 500 mg PO DAILY 1 Days #10 tab 11/15/21 [Rx] Follow up Appointment(s)/Referral(s): Ora Jiang MD [Primary Care Provider] - 1-2 days Malachi Bradley MD [STAFF PHYSICIAN] - 1 Week Discharge Disposition: HOME SELF-CARE
== END 2021-11-15 11:30 | disposition home or self-care (01) ==
LOC: EC 07:41 → 6NMEDSUR 09:56
PROVIDERS: ADMIT Urology; ATTEND Urology
DX: N45.3 Epididymo-orchitis (principal); N43.3 Hydrocele, unspecified; N31.9 Neuromuscular dysfunction of bladder, unspecified; D72.829 Elevated white blood cell count, unspecified; E78.5 Hyperlipidemia, unspecified; I10 Essential (primary) hypertension; M19.90 Unspecified osteoarthritis, unspecified site; Z86.73 Personal history of transient ischemic attack (TIA), and cerebral infarction without residual deficits; Z79.82 Long term (current) use of aspirin; Z79.899 Other long term (current) drug therapy
CPT/HCPCS: 96361 ×2; 96365; 96366 ×3; 96367; 96376 ×2; 96375; 99285; 36415; 80053; 80048 ×2; 83605; 85025; 85027; 81001; 87040; 80170; 93975; 76870; 74177; G0378 ×3; J2405; J0696; J1580 ×2; J0295 ×3; J1170 ×2; Q9967

== ENCOUNTER → 2022-01-18 | Outpatient (CLI) | payer MEDICARE ==
[2022-01-18 15:02] LABS: ALT 18 U/L (10-49); AST 22 U/L (14-35); Albumin 4.1 g/dL (3.8-4.9); Albumin/Globulin Ratio 1.42 (1.60-3.17); Alkaline Phosphatase 81 U/L (41-126); Bilirubin, Conjugated <0.20 mg/dL (0.20-0.40); Chol/HDL Ratio 5.81 Ratio; Globulin 2.9 g/dL (1.6-3.3); LDL Cholesterol,Calculated 157.4 mg/dL (0.0-131.0)
== END | disposition home or self-care (01) ==
LOC: LABWHC1 09:24
PROVIDERS: ATTEND Internal Medicine
DX: I10 Essential (primary) hypertension (principal); E78.5 Hyperlipidemia, unspecified
CPT/HCPCS: 36415; 80061; 80076

== ENCOUNTER → 2022-12-17 | Outpatient (CLI) | payer MEDICARE ==
--- NOTE | 2022-12-17 09:33 | US ---
EXAMINATION TYPE: US abdomen complete DATE OF EXAM: 12/17/2022 COMPARISON: NONE CLINICAL INDICATION: Male, 67 years old with history of R10.11 RIGHT UPPER QUADRANT PAIN; Abdominal p ain for a few weeks. TECHNIQUE: Multiple sonographic images of the abdomen are obtained. FINDINGS: EXAM MEASUREMENTS: Liver Length: 13.3 cm Gallbladder Wall: 0.2 cm CBD: 0.3 cm Spleen: 12.5 cm Right Kidney: 9.9 x 5.5 x 5.3 cm Left Kidney: 10.8 x 5.3 x 4.6 cm SCANNING CLERK NOTES: Difficult exam due to patient body habitus and overlying bowel gas Pancreas: Obscured by bowel gas Liver: coarse echotexture Gallbladder: wnl Evidence for sonographic Sam's sign: none CBD: wnl Spleen: multiple echogenic foci seen within. Right Kidney: No hydronephrosis or masses seen Left Kidney: No hydronephrosis or masses seen Upper IVC: wnl Abd Aorta: Obscured by overlying bowel gas IMPRESSION: 1. Mild fatty infiltration liver.
== END | disposition home or self-care (01) ==
LOC: RADUSWWP 08:31
PROVIDERS: ATTEND Family Medicine
DX: K76.0 Fatty (change of) liver, not elsewhere classified (principal); R10.11 Right upper quadrant pain
CPT/HCPCS: 76700

== ENCOUNTER → 2022-12-29 | Outpatient (CLI) | payer MEDICARE ==
[2022-12-29 16:19] LABS: African American GFR (CKD) 89 (>60 ml/min/1.73 sqM); Blood Urea Nitrogen 21 mg/dL (9-20); Non-African American GFR(CKD) 77 (>60 ml/min/1.73 sqM)
--- NOTE | 2022-12-31 08:04 | CT ---
EXAMINATION TYPE: CT pelvis w con DATE OF EXAM: 12/29/2022 COMPARISON: CT abdomen and pelvis 11/13/2021 INDICATION: Lower pelvic pain, r/o inguinal hernia DLP: 1099.9 mGycm, Automated exposure control for dose reduction was used. CONTRAST: 100 cc mL of Isovue 300. Study performed with Oral Contrast TECHNIQUE: Axial images were obtained from above the iliac crests to the pubic rami in the axial plan e at 5 mm thick sections. Reconstructed images are reviewed on the computer in the coronal plane. FINDINGS: CT PELVIS: Loops of bowel within the lower abdomen and pelvis are normal. There are loops of bowel which are incompletely distended or lack oral contrast limiting their evaluation. There is a small periumbilical hernia containing mesenteric fat with an opening 1.4 cm. No loops of b owel are involved. There is a left inguinal hernia. This has mild limitation due to beam hardening ar tifact from a left hip prosthesis. No loops of bowel are involved Appendix: Normal as visualized. Urinary bladder: Normal. Genitourinary structures: The prostate appears unremarkable as visualized. Osseous structures: No suspicious lytic or sclerotic lesions. Facet degenerative changes are within t he lower lumbar spine. Degenerative disc changes with vacuum disc phenomenon are present L3-4 L4-5. L oss of disc height posteriorly is evident. IMPRESSION: 1. Small left inguinal hernia without involvement loops of bowel. There is some colon adjacent. 2. Small periumbilical mesenteric fat containing hernia. 3. Degenerative changes through the lower lumbar spine discs and facets.
== END | disposition home or self-care (01) ==
LOC: RADCTMAIN 15:41
PROVIDERS: ATTEND Urology
DX: K40.90 Unilateral inguinal hernia, without obstruction or gangrene, not specified as recurrent (principal); N50.89 Other specified disorders of the male genital organs; M51.36 Other intervertebral disc degeneration, lumbar region; K42.0 Umbilical hernia with obstruction, without gangrene
CPT/HCPCS: 82565; 84520; 72193; 36415; Q9967

== ENCOUNTER 2023-01-28 10:08 | Day surgery (SDC) | payer MEDICARE ==
[2023-01-26 12:22] VITALS: BMI 30.7
[~2023-01-28 10:08] MED LIST changes: -IOPAMIDOL M200 10 ML VIAL ONE; -methylPREDNISolone ACETATE 80 MG/ML 1 ML VIAL ONE
[2023-01-28 10:34] VITALS: TEMP 98
[2023-01-28] MEDS ORDERED: PROPOFOL 10 MG/ML 20 ML VIAL IV ONE (10:51)
[2023-01-28] MEDS ORDERED: LIDOCAINE 1% INJ 10MG/ML (20 ML MDV) ONE (10:51)
--- NOTE | 2023-01-28 11:09 | P.PCN ---
Date of Procedure: 01/28/23 Procedure(s) Performed: BRIEF HISTORY: Patient is a 67-year-old pleasant white male scheduled for an elective colonoscopy as a part of screening for colon cancer. PROCEDURE PERFORMED: Colonoscopy. PREOPERATIVE DIAGNOSIS: Screening for colon cancer. IV sedation per Anesthesia. PROCEDURE: After informed consent was obtained, the patient, was brought into the endoscopy unit. IV sedation was administered by Anesthesia under continuous monitoring. Digital rectal examination was normal. Initially the Olympus CF-160 flexible video colonoscope was then inserted in the rectum, gradually advanced into the cecum without any difficulty. Careful examination was performed as the scope was gradually being withdrawn. Ileocecal valve and the appendiceal orifice were visualized and appeared normal. Prep was excellent. Mucosa of the cecum, ascending colon, transverse colon, descending colon, sigmoid colon, and rectum appeared normal. Retroflexion was performed in the rectum and grade 2 internal hemorrhoids were seen. The patient tolerated the procedure well. IMPRESSION: Normal-appearing colon from rectum to cecum with no evidence of colorectal neoplasia . Grade 2 internal hemorrhoids. RECOMMENDATIONS: Findings of this examination were discussed with the patient as well as his family.. He was advised to have a repeat screening colonoscopy in 10 years.
[2023-01-28 11:54] VITALS: BP 140/82; PULSE 61; RESP 16
== END 2023-01-28 11:47 | disposition home or self-care (01) ==
LOC: ORWHC2ENDO 10:08
PROVIDERS: ATTEND Internal Medicine Gastroenterology
DX: Z12.11 Encounter for screening for malignant neoplasm of colon (principal); K64.1 Second degree hemorrhoids; I10 Essential (primary) hypertension; E78.5 Hyperlipidemia, unspecified; M19.90 Unspecified osteoarthritis, unspecified site; K59.00 Constipation, unspecified; Z79.51 Long term (current) use of inhaled steroids; Z79.899 Other long term (current) drug therapy; Z86.73 Personal history of transient ischemic attack (TIA), and cerebral infarction without residual deficits
CPT/HCPCS: J2001; J2704; G0121

== ENCOUNTER → 2023-03-01 | Outpatient (CLI) | payer MEDICARE ==
[2023-03-01 18:40] LABS: Basophils # (A) 0.08 X 10*3/uL (0.00-0.10); Basophils % (A) 1.3 %; Eosinophils # (A) 0.12 X 10*3/uL (0.04-0.35); Eosinophils % (A) 1.9 %; HCT 47.3 % (39.6-50.0); HGB 15.7 g/dL (13.0-17.0); Lymphocytes # (A) 2.02 X 10*3/uL (0.90-5.00); Lymphocytes % (A) 31.6 %; MCH 29.2 pg (27.0-32.0); MCHC 33.2 g/dL (32.0-37.0); MCV 88.1 FL (80.0-97.0); Mean Platelet Volume 10.8 FL (9.5-12.2); Monocytes # (A) 0.81 X 10*3/uL (0.20-1.00); Monocytes % (A) 12.7 %; NRBC Per 100 WBC 0 X 10*3/uL (0.00-0.01); Neutrophils # (A) 3.34 X 10*3/uL (1.80-7.70); Neutrophils % (A) 52.2 %; Platelet Count 238 X 10*3/uL (140-440); RBC 5.37 X 10*6/uL (4.40-5.60); RDW 14.1 % (11.5-14.5); WBC 6.39 X 10*3/uL (4.50-10.00)
[2023-03-01 18:41] LABS: Appearance,Urine Clear (Clear); Bilirubin,Urine Negative (Negative); Blood,Urine Negative (Negative); Color,Urine Yellow (Yellow); Ketones,Urine Negative (Negative); Nitrite,Urine Negative (Negative); PH, Urine 7.5; Specific Gravity,Urine 1.012 (1.001-1.030); Urobilinogen,Urine 0.2 E.U./DL
[2023-03-01 18:48] LABS: BUN/Creat Ratio 17.44 Ratio (12.00-20.00); Blood Urea Nitrogen 15.7 mg/dL (9.0-27.0); Calcium 9.7 mg/dL (8.7-10.3); Carbon Dioxide 29.1 mmol/L (21.6-31.8); Chloride 102 mmol/L (96-109); Glucose 76 mg/dL (70-110); Sodium 141 mmol/L (135-145)
== END | disposition home or self-care (01) ==
LOC: LABWHC1 12:45
PROVIDERS: ATTEND Urology
DX: N35.014 Post-traumatic urethral stricture, male, unspecified (principal)
CPT/HCPCS: 36415; 80048; 81003; 85025; 87086

== ENCOUNTER 2023-03-03 05:42 | Day surgery (SDC) | payer MEDICARE ==
[2023-03-01 08:41] VITALS: BMI 30.7
[~2023-03-03 05:42] MED LIST changes: +ALPRAZolam 0.25 MG TAB PO PRN; +ALPRAZolam 0.5 MG TAB PO PRN; +HEPARIN SODIUM,PORCINE (1 ML) 2,500 UNIT in SODIUM CHLORIDE 0.9% 250 ML IRRIGATION PRN; +HEPARIN SODIUM,PORCINE 10,000 UNIT in SODIUM CHLORIDE 0.9% 1,000 ML IRRIGATION PRN; -LACTATED RINGERS 1,000 ML IV SCH; -LIDOCAINE 1% (10MG/ML) FOR IV START INTRADERMA PRN; +NITROGLYCERIN SL TABS 0.4 MG TAB SUBLINGUAL PRN; +SODIUM CHLORIDE 0.9% 1,000 ML in EMPTY BAG 1 BAG IV SCH
[2023-03-03] MEDS ORDERED: SODIUM CHLORIDE 0.9% 1,000 ML IV ONE (06:00)
[2023-03-03] MEDS ORDERED: ASPIRIN 325 MG TAB PO ONE (07:00)
[2023-03-03] MEDS ORDERED: LIDOCAINE 1% INJ 10MG/ML (20 ML MDV) ONE (07:41)
[2023-03-03] MEDS ORDERED: VERAPAMIL 2.5 MG/ML 2 ML AMP ONE (07:41)
[2023-03-03] MEDS ORDERED: HEPARIN SODIUM 1,000 UN/ML (10ML VL) ONE (07:48)
[2023-03-03] MEDS ORDERED: MIDAZOLAM 2 MG/2 ML VIAL IVP ONE (07:50)
[2023-03-03] MEDS ORDERED: LIDOCAINE 1% INJ 10MG/ML (20 ML MDV) SQ ONE ×2 (07:53→07:54)
[2023-03-03] MEDS ORDERED: VERAPAMIL SYRINGE (5 MG/10 ML) INTRAARTER ONE (07:54)
[2023-03-03] MEDS ORDERED: TICAGRELOR 90 MG TAB ONE (08:11)
[2023-03-03] MEDS ORDERED: TICAGRELOR 90 MG TAB PO ONE (08:15)
[2023-03-03] MEDS ORDERED: IOPAMIDOL-370 100ML BTL INJ ONE ×2 (08:19→08:49)
[2023-03-03] MEDS ORDERED: fentaNYL (PF) 50 MCG/ML 2 ML AMP ONE (08:22)
[2023-03-03] MEDS ORDERED: fentaNYL (PF) 50 MCG/ML 2 ML AMP IVP ONE (08:23)
[2023-03-03] MEDS ORDERED: ALBUTEROL NEBULIZED 2.5 MG/3 ML INHALATION PRN (08:54)
[2023-03-03] MEDS ORDERED: BACLOFEN 10 MG TAB PO PRN (08:54)
[2023-03-03] MEDS ORDERED: ATROPINE SULFATE 0.1 MG/ML 10ML SYRINGE IV PRN (08:56)
[2023-03-03] MEDS ORDERED: RX INFO: IV CONTRAST WAS GIVEN 1 EACH MISC MISCELLANE PRN (08:56)
[2023-03-03] MEDS ORDERED: MAG HYDROX/AL HYDROX/SIMETH 30 ML CUP PO PRN (08:56)
[2023-03-03] MEDS ORDERED: ZOLPIDEM 5 MG TAB PO PRN (08:56)
--- NOTE | 2023-03-03 08:58 | P.PCN ---
Date of Procedure: 03/03/23 Operative Findings: CARDIAC CATHETERIZATION AND PERCUTANEOUS CORONARY INTERVENTION PERFORMING PHYSICIAN: Sonu Maria MD, [facility] PROCEDURE PERFORMED: 1. Selective right and left coronary angiogram 2. Adjunctive use of Doppler wire and intravascular imaging 3. Successful stenting of mid LAD using 3.5 x 28 mm Xience SERAFIN with an excellent angiographic results INDICATION: The patient is a 67-year-old gentleman who is known to have coronary artery disease with intermediate disease involving the LAD was seen in the office for preoperative cardiac assessment before noncardiac surgery. He was symptomatic in term of shortness of breath and he does have limited functional capacity. A heart catheterization was advised for definitive diagnosis and assess for any progression in the severity of the severity COMPLICATION: None APPROACH: Right radial artery LEVEL OF SEDATION: Moderate with the sedation time off 58 minutes PROCEDURE DESCRIPTION: After obtaining an informed consent the patient was brought to the cardiac r&d lab technician. The right radial artery was cannulated using puncture technique the micro- puncture wire passed easily then placed a 6-Tamazight sheath in the right radial artery to give the patient 5000 thousand units of heparin IV and 2 mg of verapamil intra-arterial. Selective right and left coronary angiogram performed using JR4 and JL 3.5 catheters. After that we did intervene on the LAD. The procedure was completed was no complication SELECTIVE CORONARY ANGIOGRAM: The right coronary artery: Large caliber vessel and a dominant vessel was mild disease in the proximal and midportion Left main: Is angiographically normal. Bifurcates into an LCx and LAD The left circumflex: Moderate caliber vessel and dominant vessel has mild disease to moderate disease in the midportion The left anterior descending artery: Large caliber vessel. Calcified vessel. The mid LAD has a tubular lesion appeared to be in the range of 60-70%. We did Doppler wire measurement and that came in to be significant/ischemic] PCI OF THE LAD: Anticoagulation was initiated using heparin with continuous ACT monitoring subsequently I engaged the left main using JL 3.5 guiding catheter. That was performed after we decided to do Doppler wire measurement. So after zeroing the Doppler wire and equalizing between the Doppler wire and guiding catheter in left main was engaged using JL 3.5 guiding catheter. Subsequently we did iFR that came in to be ischemic 0.73. After that we decided to intervene on the LAD. Attempting advancing intravascular imaging catheter was successful to proximal LAD but not the mid LAD. Attempting advancing balloon for predilatation was unsuccessful because the guidewire subcutaneously support and at that point I decided to change my guide into extra backup support guide using CLS 3 guiding catheter. The LAD was wired using a run-through wire. I did use guide liner for support as well. Predilatation was performed using 3 mm noncompliant low before I deployed 3.5 x 28 mm stent which was postdilated using 4 mm noncompliant balloon with final angiogram and intravascular imaging showed good angiographic results and the procedure was performed and completed was no complication and the patient tolerated the procedure very well CONCLUSION: Severe disease involving the mid LAD. I performed successful stenting of the radius described above POSTPROCEDURE MANAGEMENT: 1. Dual antiplatelet therapy using aspirin and Brilinta for at least 6 month 2. Aggressive cholesterol control 3. Follow-up with the patient
[2023-03-03] MEDS ORDERED: ASPIRIN 81 MG PO SCH (09:00)
[2023-03-03] MEDS ORDERED: hydrALAZINE HCL 20 MG/ML 1 ML VIAL IVP PRN (09:58)
[2023-03-03] MEDS: CHOLECALCIFEROL 125 MCG (5000 IU) TABLET PO SCH (18:11)
[2023-03-03] MEDS: ASCORBIC ACID 500 MG TAB PO SCH (18:11)
[2023-03-03] MEDS: TICAGRELOR 90 MG TAB PO SCH (20:25)
[2023-03-03] MEDS ORDERED: ATORVASTATIN 80 MG TAB PO SCH (21:00)
[2023-03-04 04:51] VITALS: TEMP 97.4
[2023-03-04 06:00] LABS: Basophils # (A) 0.1 k/uL (0-0.2); Basophils % (A) 1 %; Eosinophils # (A) 0.2 k/uL (0-0.7); Eosinophils % (A) 2 %; HCT 49.1 % (39.0-53.0); HGB 15.9 gm/dL (13.0-17.5); Lymphocytes # (A) 2.3 k/uL (1.0-4.8); Lymphocytes % (A) 32 %; MCH 29.8 pg (25.0-35.0); MCHC 32.3 g/dL (31.0-37.0); MCV 92.2 fL (80.0-100.0); Mean Platelet Volume 8.1; Monocytes # (A) 0.6 k/uL (0-1.0); Monocytes % (A) 9 %; Neutrophils # (A) 3.7 k/uL (1.3-7.7); Neutrophils % (A) 53 %; Platelet Count 191 k/uL (150-450); RBC 5.33 m/uL (4.30-5.90); RDW 14.4 % (11.5-15.5); WBC 7.1 k/uL (3.8-10.6)
[2023-03-04 06:01] LABS: African American GFR (CKD) >90 (>60 ml/min/1.73 sqM); Anion Gap 5 mmol/L; Blood Urea Nitrogen 16 mg/dL (9-20); Calcium 8.8 mg/dL (8.4-10.2); Carbon Dioxide 23 mmol/L (22-30); Chloride 110 mmol/L (98-107); Glucose 94 mg/dL (74-99); Non-African American GFR(CKD) >90 (>60 ml/min/1.73 sqM); Potassium 3.8 mmol/L (3.5-5.1); Sodium 138 mmol/L (137-145)
[2023-03-04] MEDS ORDERED: PANTOPRAZOLE 40 MG TABLET PO SCH (07:30)
[2023-03-04] MEDS: ASCORBIC ACID 500 MG TAB PO SCH (08:56)
[2023-03-04] MEDS: CHOLECALCIFEROL 125 MCG (5000 IU) TABLET PO SCH (08:56)
[2023-03-04] MEDS: TICAGRELOR 90 MG TAB PO SCH (08:56)
[2023-03-04] MEDS ORDERED: NIACIN TR 500 MG CAPLET PO SCH (09:00)
[2023-03-04] MEDS ORDERED: hydroCHLOROthiazide 25 MG TAB PO SCH (09:00)
[2023-03-04] MEDS ORDERED: ASPIRIN 81 MG PO SCH (09:00)
[2023-03-04 09:18] VITALS: BP 147/82; PULSE 54; RESP 14
== END 2023-03-04 10:11 | disposition home or self-care (01) ==
LOC: CATHCVL 05:42 → 6NMEDSUR 08:50 → CATHCVL 03-04 10:11
PROVIDERS: ATTEND Internal Medicine Interventional Cardiology
DX: I25.10 Atherosclerotic heart disease of native coronary artery without angina pectoris (principal); I10 Essential (primary) hypertension; E78.5 Hyperlipidemia, unspecified; Z79.02 Long term (current) use of antithrombotics/antiplatelets; Z79.82 Long term (current) use of aspirin; Z79.899 Other long term (current) drug therapy
CPT/HCPCS: 92978; 93454; 93799; 80048; 85025; C9600; C1887 ×3; C1769 ×3; C1894; C1753; C1874; C1725 ×3; J2250; J0360; J2001; J3010; J1644; Q9967

== ENCOUNTER 2023-10-07 10:30 | Day surgery (SDC) | payer MEDICARE ==
[~2023-10-07 10:30] MED LIST changes: -ALPRAZolam 0.25 MG TAB PO PRN; -ALPRAZolam 0.5 MG TAB PO PRN; -HEPARIN SODIUM,PORCINE (1 ML) 2,500 UNIT in SODIUM CHLORIDE 0.9% 250 ML IRRIGATION PRN; -HEPARIN SODIUM,PORCINE 10,000 UNIT in SODIUM CHLORIDE 0.9% 1,000 ML IRRIGATION PRN; +LACTATED RINGERS 1,000 ML BAG ONE; -NITROGLYCERIN SL TABS 0.4 MG TAB SUBLINGUAL PRN; -SODIUM CHLORIDE 0.9% 1,000 ML in EMPTY BAG 1 BAG IV SCH
[2023-10-07] MEDS ORDERED: PROPOFOL 10 MG/ML 20 ML VIAL IV ONE (10:31)
[2023-10-07] MEDS ORDERED: LIDOCAINE 1% INJ 10MG/ML (20 ML MDV) ONE (10:31)
--- NOTE | 2023-10-07 15:58 | OP ---
OPERATIVE REPORT DATE OF SERVICE : 10/07/2023 REQUESTING PHYSICIAN: Dr. Mushtaq Tatum. BRIEF HISTORY: The patient is a 68-year-old pleasant white male, scheduled for an elective upper endoscopy as a part of evaluation of epigastric pain, abdominal bloating, early satiety, and nausea for the last 6 months' duration. He is scheduled for an upper endoscopy to evaluate further. He was recently started on Protonix 40 mg daily and symptoms are gradually improving. PROCEDURE PERFORMED: EGD with biopsy. PREOPERATIVE DIAGNOSES: Epigastric pain, abdominal bloating, and early satiety. ANESTHESIA: IV sedation per Anesthesia. DESCRIPTION OF PROCEDURE: After informed consent was obtained from the patient, he was brought into the endoscopy unit. IV conscious sedation was administered by Anesthesia and continuous monitoring, initially, the Olympus GIF-180 video endoscope was inserted into the mouth, esophagus intubated without any difficulty, and was gradually advanced into the stomach and duodenum, and carefully examined. Bulb and the second part of the duodenum appeared normal. Biopsies were done from the duodenum to evaluate for celiac disease. Scope was then withdrawn to the stomach, adequately insufflated with air, and upon careful examination, mucosa of the antrum had mild patchy areas of erythema consistent with gastritis and biopsies for Helicobacter pylori were done. Body of the stomach appeared normal. On retroflexion, cardia and fundus appeared normal. The scope was then withdrawn to the esophagus. The GE junction was located at 39 cm from the incisors. A small hiatal hernia noted. The rest of the esophagus appeared normal and the patient tolerated the procedure well. Biopsies were also done from the distal esophagus. IMPRESSION: 1. Mild antral gastritis. 2. Small hiatal hernia. 3. No evidence of esophagitis or peptic ulcer disease. RECOMMENDATIONS: Findings of this examination were discussed with the patient as well as the family. He was advised to follow up with the biopsy results. In the meantime, he will continue with Protonix 40 mg daily and follow anti-reflux measures. He will be seen back in office in 3 to 4 weeks. MMODL / IJN: [id number] /
== END 2023-10-07 11:42 ==
LOC: ORWHC2ENDO 10:30
PROVIDERS: ATTEND Internal Medicine Gastroenterology
DX: R19.8 Other specified symptoms and signs involving the digestive system and abdomen
CPT/HCPCS: 43239; 88305

== ENCOUNTER → 2024-01-25 | Outpatient (CLI) | payer MEDICARE ==
--- NOTE | 2024-01-25 15:57 | MR ---
EXAMINATION TYPE: MR brain wo/w con DATE OF EXAM: 01/25/2024 2:43 PM COMPARISON: None. CLINICAL INDICATION: Male, 68 years old with history of G35 MULTIPLE SCLEROSIS I67.9 CEREBROVASCULAR DISEA, Unsteady gait, weakness/numbness. evaluating for MS. TECHNIQUE: Multiplanar, multiecho imaging on a 3.0 Nancy magnet is performed through the brain. Stud y is performed within 24 hours of arrival to the hospital.Multiplanar, multiecho imaging on a 3.0 Manisha la magnet is performed through the knee. IV Contrast: 9.5 mL Gadobutrol (None, if empty) FINDINGS: The craniovertebral junction is normal. The pituitary is normal. There is a calcification with hype rintensity along the right falx. No significant mass effect on the adjacent brain is evident. 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 No abnormal hyperintensity is present to suggest an acute i ntracranial infarct or acute ischemic change. There are punctate subcortical and deep white matter hyperintensities on T2 and inversion recovery we ighted sequences. These are nonspecific. Differential diagnosis does include microvascular ischemic c hange, multiple sclerosis, Lyme disease, vasculitis, migraine headaches. Largest lesions left centrum semiovale frontal lobe measuring 0.8 x 0.4 cm. Series 702 image 23. Ventricles and sulci are appropriate for the patient age. No suspicious enhancement evident. There is mild mucosal thickening throughout ethmoid air cells likely on the basis of chronic white ma tter ischemic changes. IMPRESSION: 1. Scattered white matter changes are nonspecific. Multiple sclerosis is within the differential. Supa rovascular ischemic change can be considered. [facility], , 01/25/2024 3:55 PM
== END | disposition home or self-care (01) ==
LOC: RADMRIMAIN 13:34
PROVIDERS: ATTEND Family Medicine
DX: G35 Multiple sclerosis (principal); R90.82 White matter disease, unspecified; I67.9 Cerebrovascular disease, unspecified
CPT/HCPCS: 70553; A9585

== ENCOUNTER → 2024-01-25 | Outpatient (CLI) | payer MEDICARE ==
--- NOTE | 2024-01-26 10:59 | MR ---
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 TECHNIQUE: Multiplanar, multisequence images of the lumbar spine were acquired. IV Contrast: mL (None, if empty) FINDINGS: Cord ends at the T12-L1 level L5-S1: Facet hypertrophy is present. There is moderate left foraminal stenosis. Disc height appears p reserved. No focal disc herniation or bulge is evident. No AP spinal canal stenosis. L4-L5: There is posterior loss of disc height. Left hemilaminectomy has been performed. There is tim re left foraminal stenosis. Severe right foraminal stenosis is present. Some broad based disc bulge i s present with anterior thecal sac contact. AP spinal canal stenosis is not present L3-L4: Disc space narrowing is present. Some vacuum disc phenomenon is present. Broad-based disc bulg e is present with moderate anterior thecal sac compression. Facet hypertrophy and ligamentum flavum l axity is present with posterior lateral thecal sac compression greater on the right. Severe bilateral foraminal stenosis present. This appears greater on the left. Modic type I degenerative endplate ninfa nges at L3-4. L2-L3: There is preservation of the disc height and disc hydration. No significant disc herniation or disc bulge evident. Facet hypertrophy is present with ligamentum flavum laxity. This has posterior l ateral thecal sac pression. Neural foramen are patent. L1-L2: Mild retrolisthesis of L1 posteriorly on L2 is present. Disc uncovering is present. No signifi cant thecal sac compression is evident. There is facet hypertrophy and flavum laxity. Spinal canal na rrowing is evident. T12-L1: Disc space narrowing is present. There is wedge deformity of L1. There is some mild posterior superior wall displacement. There is exaggeration of the kyphosis at the T12-L1 level. Posterior L1 vertebral body displacement is evident and the spinal canal. This is estimated at the 0.6 cm. No cord contact or spinal canal stenosis. Laminectomies are present. Comparison: 02/27/2016. The wedge deformity with posterior wall displacement of L1 is stable. The mild retrolisthesis of L1 posterior to stable. Degenerative loss of disc height at the L5 3-4 and L4-5 levels is stable. IMPRESSION: 1. Mild wedge deformity L1, stable from 2017. There is a grade 1 L1 retrolisthesis on L2. Degenerativ e disc changes are present T12-L1 and L1-2. 2. Degenerative disc changes greatest at L4 and posteriorly L4-5. 3. Severe foraminal stenosis multiple levels including bilateral L4-5 levels, L3-4 [facility], , 01/26/2024 10:56 AM
== END | disposition home or self-care (01) ==
LOC: RADMRIMAIN 13:29
PROVIDERS: ATTEND Neurological Surgery
DX: M51.369 Other intervertebral disc degeneration, lumbar region without mention of lumbar back pain or lower extremity pain (principal); M48.061 Spinal stenosis, lumbar region without neurogenic claudication; M47.816 Spondylosis without myelopathy or radiculopathy, lumbar region; M48.56XA Collapsed vertebra, not elsewhere classified, lumbar region, initial encounter for fracture
CPT/HCPCS: 72148

== ENCOUNTER → 2024-02-03 | Outpatient (CLI) | payer MEDICARE ==
--- NOTE | 2024-02-03 12:45 | XR ---
EXAMINATION TYPE: XR chest 2V DATE OF EXAM: 02/03/2024 12:28 PM COMPARISON: 04/05/2022 CLINICAL INDICATION: Male, 68 years old with history of J44.9 CHRONIC OBSTRUCTIVE PULMONARY DISEASE, UNSPE, TECHNIQUE: Frontal and lateral views of the chest are obtained. FINDINGS: There is no focal air space opacity, pleural effusion, or pneumothorax seen. The cardiac silhouette size is within normal limits. The osseous structures are intact. IMPRESSION: No acute cardiopulmonary process. [facility], , 02/03/2024 12:42 PM
== END | disposition home or self-care (01) ==
LOC: RADXRMAIN 12:17
PROVIDERS: ATTEND Family Medicine
DX: J44.9 Chronic obstructive pulmonary disease, unspecified (principal)
CPT/HCPCS: 71046